=== PATIENT | female | born 1980 | race African-American/Black ===

== ENCOUNTER → 2016-12-26 | Outpatient (CLI) | payer MEDICARE, MEDICAID ==
--- NOTE | 2016-12-27 14:56 | XCELERA REPORT ---
[address] [address] Upper Extremity Venous Evaluation Name: MARIO WOOD Age: 36 yrs Gender: Female : 1980 Patient Status: Outpatient Patient Location: Study Date: 12/26/2016 03:18 PM Procedure: Unilateral duplex scan of the left upper extremity veins was performed, including responses to compression and other maneuvers. Reason For Study: LT ARM PAIN Ordering Physician: GEORGI HERNANDEZ Performed By: Gale Pack Left Sided Venous Evaluation Normal vessel filling wall to wall, compression and augmentation as well as Colour flow down to the forrearm veins. Interpretation Summary Normal compression, patency, spontaneous and phasic flow of the left upper extremity veins. : GEORGI HERNANDEZ > Giuseppe Naidu
== END ==
LOC: SP 14:43
PROVIDERS: ATTEND Pain Medicine Pain Medicine
DX: M79.602 Pain in left arm (principal)
CPT/HCPCS: 93971

== ENCOUNTER 2017-03-09 01:32 | Emergency (ER) | payer MEDICARE, MEDICAID ==
--- NOTE | 2017-03-09 02:26 | ER Document Report ---
ED General - General Chief Complaint: Probable Seizure Stated Complaint: POSSIBLE SEIZURES Time Seen by Provider: 03/09/17 02:06 Notes: Patient is a 36-year-old female with end-stage renal disease with dialysis dependence and a history of pseudoseizures who presents with 1 of her typical seizure-like episodes. Although patient was started in the emergency department on Keppra, she has never had a formal neurology evaluation and review of her prior seizures indicates that virtually all of them occur under stressful situations or during arguments and never have a postictal state. Tonight she had an episode in which again she states she was very stressed and had a 10-15 seconds episode of generalized jerking per her who is at the bedside. He notes that she immediately after she was alert, oriented and answering questions. He notes this is very typical for her seizure-like episodes. At time of my assessment she denies any concerns or complaints. She has been taking all medications as directed. She has not noted that anything seem to trigger her seizures other than stress or anxiety and that they do resolve on their own. TRAVEL OUTSIDE OF THE [place] IN LAST 30 DAYS: No - Related Data Allergies/Adverse Reactions: latex [Latex] Allergy (Intermediate, Verified 03/09/17 02:43) Hives tramadol [Tramadol] Allergy (Intermediate, Verified 03/09/17 02:43) Hives ibuprofen Allergy (Verified 03/09/17 02:43) naproxen sodium [From Aleve] Allergy (Verified 03/09/17 02:43) Hives Past Medical History - General Information source: Patient - Social History Smoking Status: Never Smoker Frequency of alcohol use: None Drug Abuse: None Lives with: Spouse/Significant other Family History: Reviewed & Not Pertinent - Past Medical History Cardiac Medical History: Reports: Hx Hypertension Denies: Hx Coronary Artery Disease, Hx Heart Attack Pulmonary Medical History: Denies: Hx Asthma, Hx Bronchitis, Hx COPD, Hx Pneumonia Neurological Medical History: Reports: Hx Seizures. Denies: Hx Cerebrovascular Accident Renal/ Medical History: Reports: Hx End Stage Renal Disease, Hx Hemodialysis. 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, Reports Hx Musculoskeletal Trauma Skin Medical History: Reports Hx Eczema Past Surgical History: Reports: Hx Section, Hx Orthopedic Surgery - bilateral wrist, Hx Thyroid Surgery - x3, Hx Vascular Surgery - Immunizations Immunizations up to date: Yes Hx Diphtheria, Pertussis, Tetanus Vaccination: Yes Review of Systems - Review of Systems Notes: Constitutional: Negative for fever. HENT: Negative for sore throat. Eyes: Negative for visual changes. Cardiovascular: Negative for chest pain. Respiratory: Negative for shortness of breath. Gastrointestinal: Negative for abdominal pain, vomiting or diarrhea. Genitourinary: Negative for dysuria. Musculoskeletal: Negative for back pain. Skin: Negative for rash. Neurological: Negative for headaches, weakness or numbness. 10 point ROS negative except as marked above and in HPI. Physical Exam - Vital signs Vitals: Temp Pulse Resp BP Pulse Ox 98.1 F 74 16 138/100 H 99 03/09/17 01:41 03/09/17 01:41 03/09/17 01:41 03/09/17 01:41 03/09/17 01:41 Interpretation: Normal Notes: PHYSICAL EXAMINATION: GENERAL: Well-appearing, well-nourished and in no acute distress. HEAD: Atraumatic, normocephalic. EYES: Pupils equal round and reactive to light, extraocular movements intact, sclera anicteric, conjunctiva are normal. ENT: nares patent, oropharynx clear without exudates. Moist mucous membranes. NECK: Normal range of motion, supple without lymphadenopathy LUNGS: Breath sounds clear to auscultation bilaterally and equal. No wheezes rales or rhonchi. HEART: Regular rate and rhythm without murmurs ABDOMEN: Soft, nontender, normoactive bowel sounds. No guarding, no rebound. No masses appreciated. EXTREMITIES: Normal range of motion, no pitting or edema. No cyanosis. NEUROLOGICAL: Face symmetric. Tongue protrudes midline. Extraocular motions intact. Pupils are 2 mm and equally reactive. Normal speech, normal gait. 5 out of 5 strength in both the distal and proximal upper and lower extremities bilaterally. Sensation is grossly intact throughout. Finger to nose testing normal. Pronator drift normal. PSYCH: Normal mood, normal affect. SKIN: Warm, Dry, normal turgor, no rashes or lesions noted. Course - Re-evaluation Re-evalutation: 03/09/17 02:09 Patient presents with symptoms had a history consistent with PNES. Clinical history is inconsistent with an epileptic seizure and I do not believe any imaging or labs as indicated. Neurologic exam unremarkable without any focal neurologic deficits. No trauma sustained during today's episode. The patient does have a history of similar episodes in the past as well as a psychiatric history. I have encouraged prompt follow-up and consideration of keppra discontinuation as her history is not consistent with epileptogenic seizures. At this time will discharge with return precautions and follow-up recommendations. Verbal discharge instructions given a the bedside and opportunity for questions given. Medication warnings reviewed. Patient is in agreement with this plan and has verbalized understanding of return precautions and the need for primary care follow-up in the next 24-72 hours. - Vital Signs Vital signs: Temp Pulse Resp BP Pulse Ox 98.3 F 70 14 128/78 H 99 03/09/17 02:37 03/09/17 02:37 03/09/17 02:37 03/09/17 02:37 03/09/17 02:37 Discharge - Discharge Clinical Impression: Pseudoseizures Condition: Good Disposition: HOME, SELF-CARE Additional Instructions: Today you had a seizure. Her symptoms appear to be most consistent with pseudoseizures as opposed to seizures that are coming from your brain. You should be evaluated by neurology before you continue to take your seizure medicines for the long-term as it appears that your seizures are not likely coming directly from your brain but more due to stressors. Please return to the ED immediately if you have multiple seizures close together, develop a severe headache, weakness, numbness, difficulty speaking, have a seizure in which you do not return to normal within 1 hour of the seizure, or have any other symptoms that are concerning to you. Referrals: LUKAS SEALS MD [ACTIVE STAFF] - Follow up in 3-5 days
[2017-03-09 02:44] VITALS: BP 128/78
== END 2017-03-09 02:40 | disposition home or self-care (01) ==
LOC: ER 01:32
DX: R56.9 Unspecified convulsions (principal); I12.0 Hypertensive chronic kidney disease with stage 5 chronic kidney disease or end stage renal disease; N18.6 End stage renal disease; Z99.2 Dependence on renal dialysis; Z91.040 Latex allergy status; Z88.6 Allergy status to analgesic agent
CPT/HCPCS: 99284

== ENCOUNTER 2017-04-18 16:18 | Emergency (ER) | payer MEDICARE, MEDICAID ==
--- NOTE | 2017-04-18 17:10 | ER Document Report ---
HPI - HPI Patient complains to provider of: neck pain Onset/Duration: Persistent Quality of pain: Sharp Pain Level: 4 Context: pt complains of neck pain for the past 2 weeks. Patient is on medication for chronic back pain and nerve damage to her left upper extremity. Patient also complains of daily fevers for the past month. Patient states that she was told at dialysis that she needs to have these fevers evaluated. hx: Dialysis, chronic back pain - REPRODUCTIVE Reproductive: DENIES: : - DERM Skin Color: Normal Past Medical History - Social History Smoking Status: Unknown if Ever Smoked Family History: Reviewed & Not Pertinent - Past Medical History Cardiac Medical History: Reports: Hx Hypertension Denies: Hx Coronary Artery Disease, Hx Heart Attack Pulmonary Medical History: Denies: Hx Asthma, Hx Bronchitis, Hx COPD, Hx Pneumonia Neurological Medical History: Reports: Hx Seizures. Denies: Hx Cerebrovascular Accident Renal/ Medical History: Reports: Hx End Stage Renal Disease, Hx Hemodialysis. 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, Reports Hx Musculoskeletal Trauma Skin Medical History: Reports Hx Eczema Past Surgical History: Reports: Hx Section, Hx Orthopedic Surgery - bilateral wrist, Hx Thyroid Surgery - x3, Hx Vascular Surgery - Immunizations Immunizations up to date: Yes Hx Diphtheria, Pertussis, Tetanus Vaccination: Yes Vertical Provider Document - CONSTITUTIONAL General Appearance: WD/WN Notes: Patient with very exaggerated pain response with very minimal palpation of the neck - INFECTION CONTROL TRAVEL OUTSIDE OF THE [place] IN LAST 30 DAYS: No - RESPIRATORY O2 Sat by Pulse Oximetry: 98 Course - Vital Signs Vital signs: Temp Pulse Resp BP Pulse Ox 98.7 F 97 22 H 137/84 H 98 04/18/17 16:22 04/18/17 16:22 04/18/17 16:22 04/18/17 16:22 04/18/17 16:22
[2017-04-18 17:41] LABS: ABSOLUTE BASOPHILS # (AUTO) 0.1 10^3/uL (0.0-0.2); ABSOLUTE EOSINOPHILS # (AUTO) 0.3 10^3/uL (0.0-0.6); ABSOLUTE LYMPHOCYTES (AUTO) 1.6 10^3/uL (0.5-4.7); ABSOLUTE MONOCYTES (AUTO) 0.6 10^3/uL (0.1-1.4); ABSOLUTE NEUT (AUTO) 6.3 10^3/uL (1.7-8.2); EOSINOPHILS % (AUTO) 3.3 % (0-6); HEMATOCRIT 36.7 % (36.0-47.0); HEMOGLOBIN 12.1 g/dL (12.0-15.5); HGB HCT DIFFERENCE -0.4; MEAN CORPUSCULAR HEMOGLOBIN 31.9 pg (27.0-33.4); MEAN CORPUSCULAR HGB CONC 33.1 g/dL (32.0-36.0); MEAN CORPUSCULAR VOLUME 96 fl (80-97); MONOCYTES % (AUTO) 6.3 % (3-13); RED BLOOD COUNT 3.81 10^6/uL (3.72-5.28); RED CELL DISTRIBUTION WIDTH 13.6 % (11.5-14.0); SEGMENTED NEUTROPHILS % (AUTO) 71.4 % (42-78); WHITE BLOOD COUNT 8.9 10^3/uL (4.0-10.5)
[2017-04-18 17:55] LABS: ALANINE AMINOTRANSFERASE 17 U/L (9-52); ALBUMIN 4.4 g/dL (3.5-5.0); ALKALINE PHOSPHATASE 90 U/L (38-126); ANION GAP 16 (5-19); ASPARTATE AMINO TRANSFERASE 21 U/L (14-36); BILIRUBIN,DIRECT 0.6 mg/dL (0.0-0.4); BILIRUBIN,TOTAL 0.6 mg/dL (0.2-1.3); BLOOD UREA NITROGEN 44 mg/dL (7-20); CALCIUM 9.2 mg/dL (8.4-10.2); CARBON DIOXIDE 24 mmol/L (22-30); CHLORIDE 99 mmol/L (98-107); CREATININE RESULT 13.72 mg/dL (0.52-1.25); GLUCOSE 93 mg/dL (75-110); POTASSIUM 4.5 mmol/L (3.6-5.0); TOTAL PROTEIN 7.6 g/dL (6.3-8.2)
--- NOTE | 2017-04-18 18:27 | ER Document Report ---
ED Neck/Back Problem - General Mode of Arrival: Ambulatory Information source: Patient TRAVEL OUTSIDE OF THE [place] IN LAST 30 DAYS: No - HPI Patient complains to provider of: Neck Onset: Other - x2 weeks <HERACLIO OTOOLE - Last Filed: 04/18/17 23:39> <BARB ANDERSON - Last Filed: 04/18/17 23:49> - General Chief Complaint: Neck Pain >24hrs old Stated Complaint: NECK PAIN Time Seen by Provider: 04/18/17 16:50 Notes: Patient is a 37-year-old female who presents to the emergency department today with complaints of neck pain. Patient is holding her neck cocked to the left, stating that if she moves it to the right it causes pain. Patient states she has had neck pain for approximately 2 weeks. Patient does report being on pain management, stating she takes Percocet 7.5 daily and "this is not helping her pain". Patient also states she has had "random fevers" every few dialysis treatments and they have done blood cultures which have "not shown anything". Patient also mentions that she is curious to know if she is or not. Patient denies any fevers today. (HERACLIO OTOOLE) - Related Data Allergies/Adverse Reactions: latex [Latex] Allergy (Intermediate, Verified 03/09/17 02:43) Hives tramadol [Tramadol] Allergy (Intermediate, Verified 03/09/17 02:43) Hives ibuprofen Allergy (Verified 03/09/17 02:43) naproxen sodium [From Aleve] Allergy (Verified 03/09/17 02:43) Hives Past Medical History - General Information source: Patient - Social History Smoking Status: Unknown if Ever Smoked Cigarette use (# per day): No Frequency of alcohol use: None Drug Abuse: None Lives with: Family Family History: Reviewed & Not Pertinent - Past Medical History Cardiac Medical History: Reports: Hx Hypertension Neurological Medical History: Reports: Hx Seizures Renal/ Medical History: Reports: Hx End Stage Renal Disease, Hx Hemodialysis Musculoskeltal Medical History: Reports Hx Musculoskeletal Deformity - Nerve damage to left hand, Reports Hx Musculoskeletal Trauma Skin Medical History: Reports Hx Eczema Past Surgical History: Reports: Hx Section, Hx Orthopedic Surgery - bilateral wrist, Hx Thyroid Surgery - x3, Hx Vascular Surgery - Immunizations Immunizations up to date: Yes Hx Diphtheria, Pertussis, Tetanus Vaccination: Yes <SYDNIEHERACLIO - Last Filed: 04/18/17 23:39> Review of Systems - Review of Systems Constitutional: No symptoms reported EENT: No symptoms reported Cardiovascular: No symptoms reported Respiratory: No symptoms reported Gastrointestinal: No symptoms reported Genitourinary: No symptoms reported Female Genitourinary: See HPI, - ? Musculoskeletal: See HPI, Neck pain Skin: No symptoms reported Hematologic/Lymphatic: No symptoms reported Neurological/Psychological: No symptoms reported -: Yes All other systems reviewed and negative <HERACLIO OTOOLE - Last Filed: 04/18/17 23:39> Physical Exam <HERACLIO OTOOLE - Last Filed: 04/18/17 23:39> <BARB ANDERSON - Last Filed: 04/18/17 23:49> - Vital signs Vitals: Temp Pulse Resp BP Pulse Ox 98.7 F 97 22 H 137/84 H 98 04/18/17 16:22 04/18/17 16:22 04/18/17 16:22 04/18/17 16:22 04/18/17 16:22 - Notes Notes: Physical Exam: General: Alert, appears well. HEENT: Normocephalic. Atraumatic. PERRL. Extraocular movements intact. Oropharynx clear. Neck: Supple. Left paraspinal neck tenderness with palpation, left trapezius and left medial scapula tenderness with palpation. Respiratory: No respiratory distress. Clear and equal breath sounds bilaterally. Cardiovascular: Regular rate and rhythm. Abdominal: Normal Inspection. Non-tender. No distension. Normal Bowel Sounds. Back: Non-tender. No deformity or step off. Extremities: Moves all four extremities. Upper extremities: Normal inspection. Normal ROM. Lower extremities: Normal inspection. No edema. Normal ROM. Neurological: Normal cognition. AAOx4. Normal speech. Psychological: Normal affect. Normal Mood. Skin: Warm. Dry. Normal color. (HERACLIO OTOOLE) Course - Laboratory Result Diagrams: 04/18/17 17:20 04/18/17 17:20 <HERACLIO OTOOLE - Last Filed: 04/18/17 23:39> - Laboratory Result Diagrams: 04/18/17 17:20 04/18/17 17:20 <BARB ANDERSON - Last Filed: 04/18/17 23:49> - Re-evaluation Re-evalutation: 04/18/17 Patient is neurovascularly intact. No midline tenderness. Patient will be given a referral for outpatient MRI. She will be given Soma for pain. She is to follow-up with her doctor. Stable for discharge. Return if any worsening or concerning symptoms. (BARB ANDERSON) - Vital Signs Vital signs: Temp Pulse Resp BP Pulse Ox 98.8 F 64 16 132/80 H 99 04/18/17 19:13 04/18/17 19:13 04/18/17 19:13 04/18/17 19:13 04/18/17 19:13 - Laboratory Laboratory results interpreted by me: 04/18/17 17:20 BUN 44 H Creatinine 13.72 H Est GFR ( Amer) 4 L Est GFR (Non-Af Amer) 3 L Direct Bilirubin 0.6 H Discharge <HERACLIO OTOOLE - Last Filed: 04/18/17 23:39> <BARB ANDERSON - Last Filed: 04/18/17 23:49> - Discharge Clinical Impression: Neck muscle spasm Condition: Stable Disposition: HOME, SELF-CARE Instructions: Neck Injury (Cervical Strain) ([facility]) Prescriptions: Carisoprodol [Soma 350 Mg Tablet] 350 mg PO DAILY #30 tablet Forms: Follow-Up Radiology Testing Referrals: MELL TODD MD [Primary Care Provider] - Follow up as needed Scribe Attestation: 04/18/17 23:49 I personally performed the services described in the documentation, reviewed and edited the documentation which was dictated to the scribe in my presence, and it accurately records my words and actions. (BARB ANDERSON) Scribe Documentation - Scribe Written by Ashlyn:: Ashlyn Kramer, [id number] acting as scribe for :: Jefferson <HERACLIO OTOOLE - Last Filed: 04/18/17 23:39>
[2017-04-18] MEDS ORDERED: CARISOPRODOL 350 MG TABLET PO ONE (18:30)
[2017-04-18 19:19] VITALS: BP 132/80
== END 2017-04-18 19:23 | disposition home or self-care (01) ==
LOC: ER 16:18
DX: M62.838 Other muscle spasm (principal); M54.2 Cervicalgia; I12.0 Hypertensive chronic kidney disease with stage 5 chronic kidney disease or end stage renal disease; N18.6 End stage renal disease; Z99.2 Dependence on renal dialysis; Z91.040 Latex allergy status; Z88.6 Allergy status to analgesic agent
CPT/HCPCS: 99283; 36415; 87040; 87070; 87880; 84703; 85025; 86308; 80053; A9270; J3490

== ENCOUNTER 2017-05-06 09:26 | Emergency (ER) | payer MEDICARE, MEDICAID ==
[2017-05-06 09:32] VITALS: BP 123/70
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
== END 2017-05-06 10:35 | disposition home or self-care (01) ==
LOC: ER 09:26
DX: S61.211A Laceration without foreign body of left index finger without damage to nail, initial encounter (principal); W26.0XXA Contact with knife, initial encounter
CPT/HCPCS: 99282

== ENCOUNTER 2017-05-17 17:00 | Emergency (ER) | payer MEDICARE, MEDICAID ==
--- NOTE | 2017-05-17 17:17 | ER Document Report ---
ED Medical Screen (RME) - General Stated Complaint: ABDOMINAL PAIN Time Seen by Provider: 05/17/17 17:10 Notes: This 37-year-old female patient comes emergency room complaining of generalized abdominal pain for a week, and nausea vomiting for the past couple days. She dialyzes Monday, did not go to dialysis today. She states that she recently had dietary changes and that she thought me it was causing problems so she states the dialysis people had her stop eating meat and put her on special protein bars and shakes. She states she stopped that a few days ago but has not gotten any better. She also states "my stomach is growling for food " at this time. The patient states she does not make urine. I have greeted and performed a rapid initial assessment of this patient. A comprehensive ED assessment and evaluation of the patient, analysis of test results and completion of the medical decision making process will be conducted by additional ED providers. TRAVEL OUTSIDE OF THE [place] IN LAST 30 DAYS: No - Related Data Allergies/Adverse Reactions: latex [Latex] Allergy (Intermediate, Verified 05/17/17 17:04) Hives tramadol [Tramadol] Allergy (Intermediate, Verified 05/17/17 17:04) Hives ibuprofen Allergy (Verified 05/17/17 17:04) naproxen sodium [From Aleve] Allergy (Verified 05/17/17 17:04) Hives Past Medical History - Past Medical History Cardiac Medical History: Reports: Hx Hypertension Denies: Hx Coronary Artery Disease, Hx Heart Attack Pulmonary Medical History: Denies: Hx Asthma, Hx Bronchitis, Hx COPD, Hx Pneumonia Neurological Medical History: Reports: Hx Seizures. Denies: Hx Cerebrovascular Accident Renal/ Medical History: Reports: Hx End Stage Renal Disease, Hx Hemodialysis. 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, Reports Hx Musculoskeletal Trauma Skin Medical History: Reports Hx Eczema Past Surgical History: Reports: Hx Section, Hx Orthopedic Surgery - bilateral wrist, Hx Thyroid Surgery - x3, Hx Vascular Surgery - Immunizations Immunizations up to date: Yes Hx Diphtheria, Pertussis, Tetanus Vaccination: Yes Physical Exam - Vital signs Vitals: Temp Pulse Resp BP Pulse Ox 99.1 F 82 20 142/94 H 99 05/17/17 17:07 05/17/17 17:07 05/17/17 17:07 05/17/17 17:07 05/17/17 17:07 Course - Vital Signs Vital signs: Temp Pulse Resp BP Pulse Ox 99.1 F 82 20 142/94 H 99 05/17/17 17:07 05/17/17 17:07 05/17/17 17:07 05/17/17 17:07 05/17/17 17:07
[2017-05-17 17:39] LABS: ABSOLUTE BASOPHILS # (AUTO) 0.1 10^3/uL (0.0-0.2); ABSOLUTE EOSINOPHILS # (AUTO) 0.2 10^3/uL (0.0-0.6); ABSOLUTE LYMPHOCYTES (AUTO) 1.5 10^3/uL (0.5-4.7); ABSOLUTE MONOCYTES (AUTO) 0.5 10^3/uL (0.1-1.4); ABSOLUTE NEUT (AUTO) 6.3 10^3/uL (1.7-8.2); BASOPHILS % (AUTO) 1.3 % (0-2); EOSINOPHILS % (AUTO) 2.3 % (0-6); HEMOGLOBIN 12.2 g/dL (12.0-15.5); HGB HCT DIFFERENCE 0.6; LYMPHOCYTES % (AUTO) 17.6 % (13-45); MEAN CORPUSCULAR HEMOGLOBIN 33.2 pg (27.0-33.4); MEAN CORPUSCULAR VOLUME 98 fl (80-97); MONOCYTES % (AUTO) 5.8 % (3-13); RED BLOOD COUNT 3.68 10^6/uL (3.72-5.28); RED CELL DISTRIBUTION WIDTH 14.3 % (11.5-14.0); WHITE BLOOD COUNT 8.6 10^3/uL (4.0-10.5)
[2017-05-17 17:57] LABS: ALANINE AMINOTRANSFERASE 16 U/L (9-52); ALBUMIN 4.2 g/dL (3.5-5.0); ALKALINE PHOSPHATASE 78 U/L (38-126); ANION GAP 16 (5-19); ASPARTATE AMINO TRANSFERASE 15 U/L (14-36); BILIRUBIN,DIRECT 0.6 mg/dL (0.0-0.4); BILIRUBIN,TOTAL 0.6 mg/dL (0.2-1.3); BLOOD UREA NITROGEN 47 mg/dL (7-20); CALCIUM 9.6 mg/dL (8.4-10.2); CARBON DIOXIDE 28 mmol/L (22-30); CHLORIDE 98 mmol/L (98-107); GLUCOSE 79 mg/dL (75-110); POTASSIUM 4.7 mmol/L (3.6-5.0); SODIUM 141.9 mmol/L (137-145); TOTAL PROTEIN 6.9 g/dL (6.3-8.2)
[2017-05-17] MEDS ORDERED: ONDANSETRON HCL INJ/PF 4 MG/2 ML SDV IV ONE (18:29)
[2017-05-17] MEDS ORDERED: ONDANSETRON 4 MG TAB.RAPDIS PO ONE (18:34)
--- NOTE | 2017-05-17 18:37 | ER Document Report ---
ED General - General Chief Complaint: Abdominal Pain Stated Complaint: ABDOMINAL PAIN Time Seen by Provider: 05/17/17 17:10 Notes: 7-year-old female presents complaining of nausea for 2 days with diarrhea and abdominal cramping with decreased oral intake. Constant. Not worsening or getting any better. No ill contacts no fever. Patient is on dialysis goes Monday and missed today but does not have any headache chest pain or shortness of breath beyond her normal and no worsening edema. No foreign travel or recent antibiotics. She cannot localize the abdominal discomfort at this time. TRAVEL OUTSIDE OF THE [place] IN LAST 30 DAYS: No - Related Data Allergies/Adverse Reactions: latex [Latex] Allergy (Intermediate, Verified 05/17/17 17:04) Hives tramadol [Tramadol] Allergy (Intermediate, Verified 05/17/17 17:04) Hives ibuprofen Allergy (Verified 05/17/17 17:04) naproxen sodium [From Aleve] Allergy (Verified 05/17/17 17:04) Hives Past Medical History - General Information source: Patient - Social History Smoking Status: Never Smoker Family History: Reviewed & Not Pertinent Patient has suicidal ideation: No Patient has homicidal ideation: No - Past Medical History Cardiac Medical History: Reports: Hx Hypertension Denies: Hx Coronary Artery Disease, Hx Heart Attack Pulmonary Medical History: Denies: Hx Asthma, Hx Bronchitis, Hx COPD, Hx Pneumonia Neurological Medical History: Reports: Hx Seizures. Denies: Hx Cerebrovascular Accident Renal/ Medical History: Reports: Hx End Stage Renal Disease, Hx Hemodialysis. 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, Reports Hx Musculoskeletal Trauma Skin Medical History: Reports Hx Eczema Past Surgical History: Reports: Hx Section, Hx Orthopedic Surgery - bilateral wrist, Hx Thyroid Surgery - x3, Hx Vascular Surgery - Immunizations Immunizations up to date: Yes Hx Diphtheria, Pertussis, Tetanus Vaccination: Yes Review of Systems - Review of Systems Notes: REVIEW OF SYSTEMS GEN: Denies fever, chills, weight loss ENT: Denies sore throat, nasal discharge, ear pain EYES: Denies blurry vision, eye pain, discharge CV: Denies chest pain, palpitations, edema RESP: Denies cough, shortness of breath, wheezing GI: D nausea vomiting diarrhea MSK: Denies joint pain/swelling, edema, SKIN: Denies rash, skin lesions LYMPH: Denies swollen glands/lymph nodes NEURO: Denies headache, focal weakness or numbness, dizziness PSYCH: Denies depression, suicidal or homicidal ideation PHYSICAL EXAMINATION General: No acute distress, well-nourished Head: Atraumatic, normocephalic ENT: Mouth normal, oropharynx moist, no exudates or tonsillar enlargement Eyes: Conjunctiva normal, pupils equal, lids normal Neck: No JVD, supple, no guarding CVS: Normal rate, regular rhythm, no murmurs Resp: No resp distress, equal and normal breath sounds bilaterally GI: Nondistended, soft, no tenderness to palpation, no rebound or guarding Ext: No deformities, no edema, normal range of motion in upper and lower ext Back: No CVA or midline TTP Skin: No rash, warm Lymphatic: No lymphadeopathy noted Neuro: Awake, alert. Face symmetric. GCS 15. Physical Exam - Vital signs Vitals: Temp Pulse Resp BP Pulse Ox 99.1 F 82 20 142/94 H 99 05/17/17 17:07 05/17/17 17:07 05/17/17 17:07 05/17/17 17:07 05/17/17 17:07 Course - Re-evaluation Re-evalutation: 05/17/17 18:37 This is a very well-appearing 37-year-old dialysis patient with nausea vomiting and abdominal discomfort with diarrhea. Her vital signs are normal she appears quite well with a very benign abdominal exam and a normal set of labs considering that she missed dialysis today. She has no indications for acute dialysis, and based on her labs and exam I do not think she has any indication for acute imaging in the ED. This is likely a foodborne or viral gastroneuritis type illness. 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 05/17/17 19:20 05/17/17 19:20 I have discussed with the patient there likely diagnosis, aftercare plan, follow -up plans and my usual and customary return precautions. They verbalized understanding of this. - Vital Signs Vital signs: Temp Pulse Resp BP Pulse Ox 99.1 F 82 20 142/94 H 99 05/17/17 17:07 05/17/17 17:07 05/17/17 17:07 05/17/17 17:07 05/17/17 17:07 - Laboratory Result Diagrams: 05/17/17 17:23 05/17/17 17:23 Laboratory results interpreted by me: 05/17/17 05/17/17 17:23 17:23 RBC 3.68 L MCV 98 H RDW 14.3 H BUN 47 H Creatinine 15.80 H Est GFR ( Amer) 3 L Est GFR (Non-Af Amer) 3 L Direct Bilirubin 0.6 H Discharge - Discharge Clinical Impression: Nausea vomiting and diarrhea Condition: Good Disposition: HOME, SELF-CARE Instructions: Abdominal Pain ([facility]), Diarrhea, Nonspecific ([facility]) Additional Instructions: Who missed dialysis I would like you to call your kidney doctors in [place] tonight or tomorrow morning and arrange for a makeup session. Prescriptions: Ondansetron [Zofran Odt 4 mg Tablet] 1 - 2 tab PO Q4H PRN #15 tab.rapdis PRN Reason: For Nausea/Vomiting
[2017-05-17 20:01] VITALS: BP 139/81
== END 2017-05-17 19:45 | disposition home or self-care (01) ==
LOC: ER 17:00
DX: R11.2 Nausea with vomiting, unspecified (principal); R19.7 Diarrhea, unspecified; R10.9 Unspecified abdominal pain; I12.0 Hypertensive chronic kidney disease with stage 5 chronic kidney disease or end stage renal disease; N18.6 End stage renal disease; Z99.2 Dependence on renal dialysis; Z91.15 Patient's noncompliance with renal dialysis; Z91.040 Latex allergy status; Z88.5 Allergy status to narcotic agent; Z88.6 Allergy status to analgesic agent
CPT/HCPCS: 99284; 36415; 85025; 80053; A9270; S0119

== ENCOUNTER 2017-06-10 01:55 | Emergency (ER) | payer MEDICARE, MEDICAID ==
--- NOTE | 2017-06-10 02:54 | ER Document Report ---
ED General - General Chief Complaint: Nausea/Vomiting/Diarrhea Stated Complaint: DIARRHEA Time Seen by Provider: 06/10/17 02:34 TRAVEL OUTSIDE OF THE [place] IN LAST 30 DAYS: No - HPI Notes: Patient is a 37-year-old female with a history of chronic kidney disease and on dialysis who presents the ED complaining of lower abdominal/pelvic pain that has been intermittent, nausea/vomiting, diarrhea, decreased appetite 4 weeks. Patient states that she was evaluated about 3 weeks ago and was diagnosed with gastroenteritis. Patient states that her symptoms have not improved since then. She has been taking Zofran which does help on occasion with her nausea. Patient states that she has still been participating with her dialysis sessions every Monday, Monday, and Fridays without any difficulties. Patient is able to tolerate p.o. intake. Patient states that she has anuria which is normal for her over the last several years. Patient has not noticed any hematemesis, melena, hematochezia. The pain is described as a cramp and occasional sharp pain. Patient states that she does have a history of ovarian cysts as well. Denies any headache, fever, neck pain/stiffness, URI, sore throat, chest pain, palpitations, syncope, cough, shortness of breath, wheeze, dyspnea, or rash. Patient denies any smoking or illicit drug use. - Related Data Allergies/Adverse Reactions: latex [Latex] Allergy (Intermediate, Verified 06/10/17 02:03) Hives tramadol [Tramadol] Allergy (Intermediate, Verified 06/10/17 02:03) Hives ibuprofen Allergy (Verified 06/10/17 02:03) naproxen sodium [From Aleve] Allergy (Verified 06/10/17 02:03) Hives Past Medical History - Social History Smoking Status: Never Smoker Family History: Reviewed & Not Pertinent Patient has suicidal ideation: No Patient has homicidal ideation: No - Past Medical History Cardiac Medical History: Reports: Hx Hypertension Denies: Hx Coronary Artery Disease, Hx Heart Attack Pulmonary Medical History: Denies: Hx Asthma, Hx Bronchitis, Hx COPD, Hx Pneumonia Neurological Medical History: Reports: Hx Seizures. Denies: Hx Cerebrovascular Accident Renal/ Medical History: Reports: Hx End Stage Renal Disease, Hx Hemodialysis. 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 Denies recent illness. EENT: Denies eye, ear, throat, or mouth pain or symptoms. Denies nasal or sinus congestion or discharge. Denies throat, tongue, or mouth swelling or difficulty swallowing. CARDIOVASCULAR: Denies chest pain. Denies palpitations or racing or irregular heart beat. Denies ankle edema. RESPIRATORY: Denies cough, cold, or chest congestion. Denies shortness of breath, difficulty breathing, or wheezing. GASTROINTESTINAL: see hpi GENITOURINARY: see hpi. Denies difficulty urinating, painful urination, burning, frequency, blood in urine, or discharge. FEMALE GENITOURINARY: Denies vaginal bleeding, heavy or abnormal periods, irregular periods. Denies vaginal discharge or odor. MUSCULOSKELETAL: Denies back or neck pain or stiffness. Denies joint pain or swelling. SKIN: Denies rash, lesions or sores. NEUROLOGICAL: Denies confusion or altered mental status. Denies passing out or loss of consciousness. Denies dizziness or lightheadedness. Denies headache. Denies weakness or paralysis or loss of use of either side. Denies problems with gait or speech. Denies sensory loss, numbness, or tingling. ALL OTHER SYSTEMS REVIEWED AND NEGATIVE. Dictation was performed using [employer] voice recognition software Physical Exam - Vital signs Vitals: Temp Pulse Resp BP Pulse Ox 98.6 F 72 20 154/101 H 97 06/10/17 02:03 06/10/17 02:03 06/10/17 02:03 06/10/17 02:03 06/10/17 02:03 Notes: PHYSICAL EXAMINATION: GENERAL: Well-appearing, well-nourished and in no acute distress. HEAD: Atraumatic, normocephalic. EYES: Pupils equal round and reactive to light, extraocular movements intact, conjunctiva are normal. ENT: TMs intact bilaterally without erythema fluid or perforation. No tonsillar hypertrophy or erythema. No sinus tenderness. NECK: Normal range of motion, supple without lymphadenopathy. No rigidity. LUNGS: Breath sounds clear to auscultation bilaterally and equal. No wheezes rales or rhonchi. HEART: Regular rate and rhythm without murmurs ABDOMEN: Soft, nontender, nondistended abdomen. No guarding, no rebound. No masses appreciated. Normal bowel sounds present. CVA tenderness negative bilaterally. No pulsatile mass. Female : No inguinal adenopathy. External genitalia without erythema, lesions , or masses. Vaginal mucosa pink. Cervix parous, pink, and without discharge. Uterus is smooth. No adnexal tenderness. Musculoskeletal: LE's b/l: FROM to passive/active. Strength 5+/5. Extremities: No cyanosis/clubbing/edema b/l. Peripheral pulses 2+. Capillary refill less than 3 seconds. NEUROLOGICAL: Normal speech, normal gait. Normal sensory, motor exams PSYCH: Normal mood, normal affect. SKIN: Warm, Dry, normal turgor, no rashes or lesions noted. Course - Re-evaluation Re-evalutation: 06/10/17 04:55 Patient is an afebrile, well-hydrated, 37-year-old female who presents the ED with bilateral pelvic pain, uterine fibroid, right ovarian cyst. Vitals are stable. PE otherwise unremarkable. Zofran 4 mg given IV. CBC, CMP, wet mount , were unremarkable for acute pathology. I have a low suspicion for any chlam/ kavita so we will hold off on the prophylactic at this time. Risks/benefits reviewed. Pt will call in the morning for her results and report back if need be or go to the health department. Patient has known chronic kidney disease and is on dialysis. Serum negative. See transvaginal ultrasound results. Low suspicion/risk for acute appendicitis, bowel obstruction, acute cholecystitis, acute cholangitis, perforated diverticulitis, incarcerated hernia , pancreatitis, perforated ulcer, peritonitis, sepsis, pelvic inflammatory disease, ectopic , tubo-ovarian abscess, ovarian torsion, or other systemic emergent condition at this time. Patient is aware that her condition can change from initial presentation and she needs to monitor symptoms closely and seek medical attention if any acute changes. Conservative measures otherwise for symptoms. Recheck with OBGYN in 1-2 days. Recheck with your PCM in 2-3 days. 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 Return to the ED with any worsening/concerning symptoms otherwise as reviewed in discharge. Patient is in agreement. - Vital Signs Vital signs: Temp Pulse Resp BP Pulse Ox 98.6 F 72 20 154/101 H 97 06/10/17 02:03 06/10/17 02:03 06/10/17 02:03 06/10/17 02:03 06/10/17 02:03 - Laboratory Result Diagrams: 06/10/17 03:07 06/10/17 03:07 Laboratory results interpreted by me: 06/10/17 06/10/17 03:07 03:07 RBC 3.34 L Hgb 11.1 L Hct 33.0 L MCV 99 H BUN 30 H Creatinine 13.35 H Est GFR ( Amer) 4 L Est GFR (Non-Af Amer) 3 L Direct Bilirubin 0.5 H AST 12 L Total Protein 5.9 L Procedures - Pelvic Exam Pelvic exam Time completed: 04:20 Cultures obtained: Yes Wet prep obtained: Yes Bimanual exam performed: Yes - neg Witnessed by: Nurse Gonsales Discharge - Discharge Clinical Impression: Pelvic pain Ovarian cyst Qualifiers: Laterality: unspecified laterality Qualified Code(s): N83.209 - Unspecified ovarian cyst, unspecified side Uterine fibroid Qualifiers: Uterine leiomyoma location: unspecified location Qualified Code(s): D25.9 - Leiomyoma of uterus, unspecified Nausea & vomiting Qualifiers: Vomiting type: unspecified Vomiting Intractability: non-intractable Qualified Code(s): R11.2 - Nausea with vomiting, unspecified Condition: Stable Disposition: HOME, SELF-CARE Instructions: Antinausea Medication ([facility]), Vomiting ([facility]), Diarrhea, Nonspecific ([facility]), Prescribed Antidiarrhea Medications ([facility]), Abdominal Pain ( [facility]), Observation for Appendicitis ([facility]) Additional Instructions: Maintain adequate fluid and food intake Continue dialysis sessions as scheduled Take loperamide as needed for diarrhea Zofran as needed for nausea/vomiting Monitor symptoms closely for any acute changes Recheck with your PCM next week Recheck with your CHEESE TESTER next week Consider consult with gastroenterology Return to the ED with any worsening symptoms and/or development of fever, headache, chest pain, palpitations, syncope, shortness of breath, trouble breathing, abdominal pain, n/v/d, blood in stool/urine, vaginal bleeding/ discharge, or other worsening symptoms that are concerning to you. Prescriptions: Loperamide HCl [Loperamide] 2 mg PO QID PRN #20 tablet PRN Reason: Forms: Elevated Blood Pressure Referrals: MELL TODD MD [Primary Care Provider] - 06/12/17 [facility] [Provider Group] - Follow up in 3-5 days BERNARDA SHAIKH MD [ACTIVE STAFF] - Follow up as needed
[2017-06-10 03:28] LABS: ALANINE AMINOTRANSFERASE 15 U/L (9-52); ALBUMIN 3.6 g/dL (3.5-5.0); ALKALINE PHOSPHATASE 60 U/L (38-126); ANION GAP 13 (5-19); ASPARTATE AMINO TRANSFERASE 12 U/L (14-36); BILIRUBIN,DIRECT 0.5 mg/dL (0.0-0.4); BILIRUBIN,TOTAL 0.5 mg/dL (0.2-1.3); BLOOD UREA NITROGEN 30 mg/dL (7-20); CALCIUM 9.5 mg/dL (8.4-10.2); CARBON DIOXIDE 25 mmol/L (22-30); CHLORIDE 101 mmol/L (98-107); CREATININE RESULT 13.35 mg/dL (0.52-1.25); GLUCOSE 80 mg/dL (75-110); LIPASE 236.2 U/L (23-300); POTASSIUM 3.9 mmol/L (3.6-5.0); SODIUM 138.9 mmol/L (137-145); TOTAL PROTEIN 5.9 g/dL (6.3-8.2)
[2017-06-10 03:31] LABS: ABSOLUTE EOSINOPHILS # (AUTO) 0.3 10^3/uL (0.0-0.6); ABSOLUTE LYMPHOCYTES (AUTO) 1.6 10^3/uL (0.5-4.7); ABSOLUTE MONOCYTES (AUTO) 0.4 10^3/uL (0.1-1.4); ABSOLUTE NEUT (AUTO) 3.5 10^3/uL (1.7-8.2); BASOPHILS % (AUTO) 0.7 % (0-2); EOSINOPHILS % (AUTO) 5.2 % (0-6); HEMOGLOBIN 11.1 g/dL (12.0-15.5); HGB HCT DIFFERENCE 0.3; LYMPHOCYTES % (AUTO) 27.7 % (13-45); MEAN CORPUSCULAR HEMOGLOBIN 33.2 pg (27.0-33.4); MEAN CORPUSCULAR HGB CONC 33.5 g/dL (32.0-36.0); MEAN CORPUSCULAR VOLUME 99 fl (80-97); MONOCYTES % (AUTO) 7.1 % (3-13); RED BLOOD COUNT 3.34 10^6/uL (3.72-5.28); RED CELL DISTRIBUTION WIDTH 13.2 % (11.5-14.0); SEGMENTED NEUTROPHILS % (AUTO) 59.3 % (42-78); WHITE BLOOD COUNT 5.9 10^3/uL (4.0-10.5)
--- NOTE | 2017-06-10 03:57 | RADIOLOGY REPORT (SQ) ---
EXAM DESCRIPTION: U/S NON OB PEL TV W/DOPPLER COMPLETED DATE/TIME: 06/10/2017 3:44 am REASON FOR STUDY: lower abd/pelvic pain, h/o cysts COMPARISON: None. TECHNIQUE: Grayscale images acquired of the pelvis via transvaginal approach and recorded on PACS. A dditional selected color Doppler and spectral images recorded. LIMITATIONS: None. FINDINGS: UTERUS: The uterus measures 9.7 x 5.2 x 5.4 cm. There is a hypoechoic area at the myometr ium measuring 2.4 x 1.5 x 2.7 cm, suggestive of a fibroid. ENDOMETRIAL STRIPE: The endometrial stripe measures 3.3 mm in double wall thickness. CERVIX: The cervix measures 2.5 cm in length and it is closed. Nabothian cysts are noted. RIGHT OVARY: The right ovary measures 4.9 x 3.9 x 4.2 cm. Flow by Doppler was shown to the right ova ry. There is a 3.6 x 4.0 x 4.1 cm cyst. LEFT OVARY: The left ovary measures 2.5 x 1.8 x 2.2 cm. Flow by Doppler was shown to the left ovary. FREE FLUID: None noted. IMPRESSION: Small uterine fibroid. 4.1 cm right ovarian cyst. This can be followup with pelvic ultrasound in 6-12 weeks to ensure resol ution. TECHNICAL DOCUMENTATION: JOB ID: [id number] 2010 [employer]- All Rights Reserved
[2017-06-10] MEDS ORDERED: ONDANSETRON 4 MG TAB.RAPDIS PO ONE (04:35)
[2017-06-10 05:17] VITALS: BP 129/54
[2017-06-10 06:01] LABS: CHLAM PCR NOT DETECTED (NOT DETECT)
== END 2017-06-10 05:16 | disposition home or self-care (01) ==
LOC: ER 01:55
DX: R10.2 Pelvic and perineal pain (principal); N83.209 Unspecified ovarian cyst, unspecified side; D25.9 Leiomyoma of uterus, unspecified; R11.2 Nausea with vomiting, unspecified; R19.7 Diarrhea, unspecified; N18.9 Chronic kidney disease, unspecified; Z99.2 Dependence on renal dialysis; Z79.899 Other long term (current) drug therapy
CPT/HCPCS: 36415; 76830; 80053; 83690; 84703; 85025; 87210; 87491; 87591; 93976; 99284

== ENCOUNTER 2017-06-30 10:36 | Emergency (ER) | payer MEDICARE, MEDICAID ==
[2017-06-30] MEDS ORDERED: DIPHENHYDRAMINE HCL 25 MG CAPSULE PO ONE (10:48)
[2017-06-30] MEDS ORDERED: FAMOTIDINE 20 MG TABLET PO ONE (10:48)
--- NOTE | 2017-06-30 10:50 | ER Document Report ---
ED Medical Screen (RME) - General Chief Complaint: Swelling Stated Complaint: FACIAL SWELLING Time Seen by Provider: 06/30/17 10:44 Notes: 37-year-old female patient reports waking up this morning with swelling to her face, eyes, and throat. There was no itching. She states her throat feels a little sore. She did go to dialysis today and completed treatment prior to coming to the emergency room. She has not taken anything for the swelling. The patient and her relative report that the swelling is much better now than it was earlier. At this time there is only noted some edema to the upper eyelids. Posterior pharynx is clear and there is no edema at all noted. I have greeted and performed a rapid initial assessment of this patient. A comprehensive ED assessment and evaluation of the patient, analysis of test results and completion of the medical decision making process will be conducted by additional ED providers. Late history is that the patient actually did receive Benadryl at dialysis which is probably why she is better. She also reports she is about 8 weeks and has been vaginal bleeding for 5 days. She has been evaluated at the health department and reports that a heartbeat was heard using a Doppler. The patient is O+ based on prior lab work at this facility. TRAVEL OUTSIDE OF THE [place] IN LAST 30 DAYS: No - Related Data Allergies/Adverse Reactions: latex [Latex] Allergy (Intermediate, Verified 06/30/17 10:41) Hives tramadol [Tramadol] Allergy (Intermediate, Verified 06/30/17 10:41) Hives ibuprofen Allergy (Verified 06/30/17 10:41) naproxen sodium [From Aleve] Allergy (Verified 06/30/17 10:41) Hives Past Medical History - Past Medical History Cardiac Medical History: Reports: Hx Hypertension Denies: Hx Coronary Artery Disease, Hx Heart Attack Pulmonary Medical History: Denies: Hx Asthma, Hx Bronchitis, Hx COPD, Hx Pneumonia Neurological Medical History: Reports: Hx Seizures. Denies: Hx Cerebrovascular Accident Renal/ Medical History: Reports: Hx End Stage Renal Disease, Hx Hemodialysis. 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, Reports Hx Musculoskeletal Trauma Skin Medical History: Reports Hx Eczema Past Surgical History: Reports: Hx Section, Hx Orthopedic Surgery - bilateral wrist, Hx Thyroid Surgery - x3, Hx Vascular Surgery - Immunizations Immunizations up to date: Yes Hx Diphtheria, Pertussis, Tetanus Vaccination: Yes Physical Exam - Vital signs Vitals: Temp Pulse Resp BP Pulse Ox 98.5 F 75 20 149/91 H 98 06/30/17 10:37 06/30/17 10:37 06/30/17 10:37 06/30/17 10:37 06/30/17 10:37 Course - Vital Signs Vital signs: Temp Pulse Resp BP Pulse Ox 98.5 F 75 20 149/91 H 98 06/30/17 10:37 06/30/17 10:37 06/30/17 10:37 06/30/17 10:37 06/30/17 10:37
[2017-06-30 11:31] LABS: ABSOLUTE BASOPHILS # (AUTO) 0.1 10^3/uL (0.0-0.2); ABSOLUTE EOSINOPHILS # (AUTO) 0.4 10^3/uL (0.0-0.6); ABSOLUTE LYMPHOCYTES (AUTO) 1.1 10^3/uL (0.5-4.7); ABSOLUTE MONOCYTES (AUTO) 0.5 10^3/uL (0.1-1.4); ABSOLUTE NEUT (AUTO) 4.1 10^3/uL (1.7-8.2); EOSINOPHILS % (AUTO) 5.7 % (0-6); HEMATOCRIT 30.6 % (36.0-47.0); HEMOGLOBIN 10.4 g/dL (12.0-15.5); HGB HCT DIFFERENCE 0.6; LYMPHOCYTES % (AUTO) 18.3 % (13-45); MEAN CORPUSCULAR HEMOGLOBIN 33.1 pg (27.0-33.4); MEAN CORPUSCULAR HGB CONC 34.2 g/dL (32.0-36.0); MEAN CORPUSCULAR VOLUME 97 fl (80-97); MONOCYTES % (AUTO) 8.5 % (3-13); RED BLOOD COUNT 3.16 10^6/uL (3.72-5.28); RED CELL DISTRIBUTION WIDTH 13.8 % (11.5-14.0); SEGMENTED NEUTROPHILS % (AUTO) 66.5 % (42-78); WHITE BLOOD COUNT 6.1 10^3/uL (4.0-10.5)
[2017-06-30 11:57] LABS: ALANINE AMINOTRANSFERASE 24 U/L (9-52); ALBUMIN 4.1 g/dL (3.5-5.0); ALKALINE PHOSPHATASE 75 U/L (38-126); ANION GAP 13 (5-19); ASPARTATE AMINO TRANSFERASE 15 U/L (14-36); BILIRUBIN,DIRECT 0.5 mg/dL (0.0-0.4); BILIRUBIN,TOTAL 0.7 mg/dL (0.2-1.3); BLOOD UREA NITROGEN 16 mg/dL (7-20); CARBON DIOXIDE 29 mmol/L (22-30); CHLORIDE 97 mmol/L (98-107); CREATININE RESULT 8.07 mg/dL (0.52-1.25); GLUCOSE 74 mg/dL (75-110); POTASSIUM 4.4 mmol/L (3.6-5.0); SODIUM 139.1 mmol/L (137-145); TOTAL PROTEIN 6.5 g/dL (6.3-8.2)
--- NOTE | 2017-06-30 13:09 | ER Document Report ---
ED General - General Chief Complaint: Swelling Stated Complaint: FACIAL SWELLING Time Seen by Provider: 06/30/17 10:44 Mode of Arrival: Ambulatory Information source: Patient Notes: 37-year-old female dialysis patient presents with complaints of allergic reaction. Patient notes she has had some swelling around her face felt her throat was closing last night, patient took Benadryl and symptoms improved. Patient then went to dialysis this morning notes no improvement since the dialysis. Patient denies any fevers or chills denies any nausea vomiting or diarrhea denies any chest pain or new onset shortness of breath TRAVEL OUTSIDE OF THE [place] IN LAST 30 DAYS: No - HPI Onset: Yesterday Onset/Duration: Sudden Quality of pain: No pain Severity: Mild Pain Level: Denies Associated symptoms: Other Exacerbated by: Denies Relieved by: Other - Benadryl Similar symptoms previously: No Recently seen / treated by doctor: No - Related Data Allergies/Adverse Reactions: latex [Latex] Allergy (Intermediate, Verified 06/30/17 10:41) Hives tramadol [Tramadol] Allergy (Intermediate, Verified 06/30/17 10:41) Hives ibuprofen Allergy (Verified 06/30/17 10:41) naproxen sodium [From Aleve] Allergy (Verified 06/30/17 10:41) Hives Past Medical History - Social History Smoking Status: Former Smoker Cigarette use (# per day): No Chew tobacco use (# tins/day): No Smoking Education Provided: No Frequency of alcohol use: None Drug Abuse: None Family History: Reviewed & Not Pertinent - Past Medical History Cardiac Medical History: Reports: Hx Hypertension Denies: Hx Coronary Artery Disease, Hx Heart Attack Pulmonary Medical History: Denies: Hx Asthma, Hx Bronchitis, Hx COPD, Hx Pneumonia Neurological Medical History: Reports: Hx Seizures. Denies: Hx Cerebrovascular Accident Renal/ Medical History: Reports: Hx End Stage Renal Disease, Hx Hemodialysis. 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 Denies recent illness. EENT: Admits to facial swelling CARDIOVASCULAR: Denies chest pain. Denies palpitations or racing or irregular heart beat. Denies ankle edema. RESPIRATORY: Denies cough, cold, or chest congestion. Denies shortness of breath, difficulty breathing, or wheezing. GASTROINTESTINAL: Denies abdominal pain or distention. Denies nausea, vomiting , or diarrhea. Denies blood in vomitus, stools, or per rectum. Denies black, tarry stools. Denies constipation. GENITOURINARY: Denies difficulty urinating, painful urination, burning, frequency, blood in urine, or discharge. FEMALE GENITOURINARY: Denies vaginal bleeding, heavy or abnormal periods, irregular periods. Denies vaginal discharge or odor. MUSCULOSKELETAL: Denies back or neck pain or stiffness. Denies joint pain or swelling. SKIN: Denies rash, lesions or sores. HEMATOLOGIC : Denies easy bruising or bleeding. LYMPHATIC: Denies swollen, enlarged glands. NEUROLOGICAL: Denies confusion or altered mental status. Denies passing out or loss of consciousness. Denies dizziness or lightheadedness. Denies headache. Denies weakness or paralysis or loss of use of either side. Denies problems with gait or speech. Denies sensory loss, numbness, or tingling. Denies seizures. PSYCHIATRIC: Denies anxiety or stress. Denies depression, suicidal ideation, or homicidal ideation. ALL OTHER SYSTEMS REVIEWED AND NEGATIVE. PHYSICAL EXAMINATION: GENERAL: Well-appearing, well-nourished and in no acute distress. HEAD: Edema noted around the eyes bilateral no signs of infectious process EYES: Pupils equal round and reactive to light, extraocular movements intact, conjunctiva are normal. ENT: Nares patent, oropharynx clear without exudates. Moist mucous membranes. NECK: Normal range of motion, supple without lymphadenopathy LUNGS: Breath sounds clear to auscultation bilaterally and equal. No wheezes rales or rhonchi. HEART: Regular rate and rhythm without murmurs ABDOMEN: Soft, nontender, nondistended abdomen. No guarding, no rebound. No masses appreciated. Female : deferred Musculoskeletal: Normal range of motion, no pitting or edema. No cyanosis. NEUROLOGICAL: Cranial nerves grossly intact. Normal speech, normal gait. Normal sensory, motor exams PSYCH: Normal mood, normal affect. SKIN: Warm, Dry, normal turgor, no rashes or lesions noted. Dictation was performed using [employer] voice recognition software Physical Exam - Vital signs Vitals: Temp Pulse Resp BP Pulse Ox 98.5 F 75 20 149/91 H 98 06/30/17 10:37 06/30/17 10:37 06/30/17 10:37 06/30/17 10:37 06/30/17 10:37 Course - Re-evaluation Re-evalutation: 06/30/17 13:08 notes symptoms have improved significantly, given that there was throat tightness associated with this appears to be more allergic rather than fluid overload versus DVT, patient had dialysis performed today no extra fluid was noted, patient had Doppler which was negative. I believe she is stable for discharge 06/30/17 18:14 Patient also noted that she was and having vaginal bleeding, however hCG is 0. I explained to the patient this means she is not . seems quite confused since a heartbeat was supposedly noted only a few days prior, patient herself states she is not worried and that she realizes she is not , this is very strange presentation After performing a Medical Screening Examination, I estimate there is LOW risk for INTRACRANIAL HEMORRHAGE, ISCHEMIC CVA, MALIGNANT DYSRHYTHMIA, ACUTE CORONARY SYNDROME, MENINGITIS, PULMONARY EMBOLISM, or SEPSIS thus I consider the discharge disposition reasonable. I have reevaluated this patient multiple times and no significant life threatening changes are noted. The patient and I have discussed the diagnosis and risks, and we agree with discharging home with close follow-up with the understanding that symptoms and presentations can change. We also discussed returning to the Emergency Department immediately if new or worsening symptoms occur. We have discussed the symptoms which are most concerning (e.g., changing or worsening pain, weakness, vomiting, fever) that necessitate immediate return. - Vital Signs Vital signs: Temp Pulse Resp BP Pulse Ox 98.5 F 69 17 174/84 H 99 06/30/17 13:20 06/30/17 13:20 06/30/17 13:20 06/30/17 13:20 06/30/17 13:20 - Laboratory Result Diagrams: 06/30/17 11:17 06/30/17 11:17 Laboratory results interpreted by me: 06/30/17 06/30/17 11:17 11:17 RBC 3.16 L Hgb 10.4 L Hct 30.6 L Chloride 97 L Creatinine 8.07 H Est GFR ( Amer) 7 L Est GFR (Non-Af Amer) 6 L Glucose 74 L Direct Bilirubin 0.5 H Discharge - Discharge Clinical Impression: Facial edema, Vaginal bleeding Allergic Qualifiers: Encounter type: initial encounter Qualified Code(s): T78.40XA - Allergy, unspecified, initial encounter Condition: Stable Disposition: HOME, SELF-CARE Instructions: Acute Allergic Reaction ([facility]) Prescriptions: Diphenhydramine HCl [Benadryl 50 mg Capsule] 50 mg PO Q6 #20 capsule Referrals: LOCALMD,NO [Primary Care Provider] - Follow up tomorrow
[2017-06-30 13:25] VITALS: BP 174/84
--- NOTE | 2017-06-30 16:12 | XCELERA REPORT ---
[address] [address] Upper Extremity Venous Evaluation Name: MARIO WOOD Age: 37 yrs Gender: Female : 1980 Patient Status: Emergency Patient Location: ER Study Date: 06/30/2017 12:21 PM Procedure: Unilateral duplex scan of the left upper extremity veins was performed, including responses to compression and other maneuvers. Reason For Study: upper FACIAL SWELLING LUE H/O FISTULA Ordering Physician: PRINCESS CAMPA Performed By: Sophie Hooker Left Sided Venous Evaluation Normal vessel filling wall to wall, compression and augmentation as well as Colour flow down to the forearm veins. Patent arterio venous fistula noted. Interpretation Summary Normal compression, patency, spontaneous and phasic flow of the left upper extremity veins. Patent arterio venous fistula noted. : PRINCESS CAMPA > Giuseppe Naidu
== END 2017-06-30 13:25 | disposition home or self-care (01) ==
LOC: ER 10:36
DX: T78.40XA Allergy, unspecified, initial encounter (principal); R60.0 Localized edema; R09.89 Other specified symptoms and signs involving the circulatory and respiratory systems; X58.XXXA Exposure to other specified factors, initial encounter; N93.9 Abnormal uterine and vaginal bleeding, unspecified; I12.0 Hypertensive chronic kidney disease with stage 5 chronic kidney disease or end stage renal disease; N18.6 End stage renal disease; Z99.2 Dependence on renal dialysis; Z91.040 Latex allergy status; Z88.5 Allergy status to narcotic agent; Z88.6 Allergy status to analgesic agent; Z88.8 Allergy status to other drugs, medicaments and biological substances; Z87.891 Personal history of nicotine dependence
CPT/HCPCS: 99284; 36415; 84702; 85025; 80053; 93971 ×2; A9270 ×2

== ENCOUNTER 2017-07-07 17:14 | Emergency (ER) | payer MEDICARE, MEDICAID ==
[2017-07-07] MEDS ORDERED: HYDROCODONE/ACETAMINOPHEN 5-325 MG TABLET PO ONE (20:02)
--- NOTE | 2017-07-07 20:04 | ER Document Report ---
ED General - General Chief Complaint: Ankle Injury Stated Complaint: FALL/RIGHT ANKLE PAIN Time Seen by Provider: 07/07/17 19:55 Notes: 37-year-old female presents emergency department complaining of slip and fall at a grocery store in a puddle of urine several hours ago, complains of pain to her right ankle as well as some tingling to her right foot. Rates the pain as severe. TRAVEL OUTSIDE OF THE [place] IN LAST 30 DAYS: No - Related Data Allergies/Adverse Reactions: latex [Latex] Allergy (Intermediate, Verified 06/30/17 10:41) Hives tramadol [Tramadol] Allergy (Intermediate, Verified 06/30/17 10:41) Hives ibuprofen Allergy (Verified 06/30/17 10:41) naproxen sodium [From Aleve] Allergy (Verified 06/30/17 10:41) Hives Past Medical History - General Information source: Patient - Social History Smoking Status: Never Smoker Frequency of alcohol use: Occasional Drug Abuse: None Lives with: Spouse/Significant other Family History: Reviewed & Not Pertinent - Past Medical History Cardiac Medical History: Reports: Hx Hypertension Denies: Hx Coronary Artery Disease, Hx Heart Attack Pulmonary Medical History: Denies: Hx Asthma, Hx Bronchitis, Hx COPD, Hx Pneumonia Neurological Medical History: Reports: Hx Seizures. Denies: Hx Cerebrovascular Accident Renal/ Medical History: Reports: Hx End Stage Renal Disease, Hx Hemodialysis. 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 Neurological/Psychological: See HPI, Tingling Physical Exam - Vital signs Vitals: Temp Pulse Resp BP Pulse Ox 98.1 F 82 18 145/95 H 96 07/07/17 17:29 07/07/17 17:29 07/07/17 17:29 07/07/17 17:29 07/07/17 17:29 Interpretation: Hypertensive - General General appearance: Appears well, Alert In distress: None - HEENT Head: Normocephalic, Atraumatic Eyes: Normal Pupils: PERRL - Respiratory Respiratory status: No respiratory distress - Cardiovascular Pulses: Normal: Posterior tibial, Dorsalis pedis Normal capillary refill: Yes - Extremities Notes: Right ankle tender to palpation along the medial and lateral malleolus, no deformity noted, no swelling noted, no abrasions. No tenderness along the base of the fifth metatarsal, no tenderness along the metatarsals at all. Pain with inversion, some pain with eversion but less so than inversion, no difficulty with flexion or extension. - Skin Skin Temperature: Warm Skin Moisture: Dry Skin Color: Normal Course - Re-evaluation Re-evalutation: 07/07/17 21:14 X-ray negative for acute fracture, placed in Bennie wrap, counseled on ankle sprain. Put on crutches. Discharged home. - Vital Signs Vital signs: Temp Pulse Resp BP Pulse Ox 98.1 F 82 18 145/95 H 96 07/07/17 17:29 07/07/17 17:29 07/07/17 17:29 07/07/17 17:29 07/07/17 17:29 Procedures - Immobilization Right Ankle Pre-Proc Neuro Vasc Exam: Normal Immobilizer type: Bennie wrap Performed by: PCT Post-Proc Neuro Vasc Exam: Normal, Unchanged from pre-exam Alignment checked and good: Yes Discharge - Discharge Clinical Impression: Moderate right ankle sprain Qualifiers: Encounter type: initial encounter Qualified Code(s): S93.401A - Sprain of unspecified ligament of right ankle, initial encounter Ankle sprain Qualifiers: Encounter type: initial encounter Involved ligament of ankle: tibiofibular ligament Laterality: right Qualified Code(s): S93.431A - Sprain of tibiofibular ligament of right ankle, initial encounter Hypertension Qualifiers: Hypertension type: essential hypertension Qualified Code(s): I10 - Essential ( primary) hypertension Condition: Stable Disposition: HOME, SELF-CARE Additional Instructions: Sprained Ankle Your sprained ankle results from stretching or tearing of the ligaments which support the ankle. This usually results from twisting the foot inward and under. The ligaments will require time and protection in order to heal properly. Many ankle sprains are quite disabling, and should be taken seriously. The usual treatment for an ankle sprain is cold packs; protection with tape , splints, or wraps; elevation; and staying off the ankle for at least a day. As the ankle improves, you can walk IF it's not painful to bear weight. Sports are best postponed until healing is complete. More serious sprains usually require strengthening exercises after early healing. Your physician has assessed the seriousness of the ligament injury to your ankle. However, the treatment may change, depending on how your ankle progresses. If further exams were recommended, it is important that you follow through. Call the doctor if your foot becomes numb, painful, or severely swollen. You may also use acetaminophen (Tylenol) 1000 mg every 4-6 hours as needed for pain. Please be aware that many medications contain acetaminophen, do not exceed a total of 1000 mg of acetaminophen every 6 hours. Forms: Return to Work
--- NOTE | 2017-07-07 21:01 | RADIOLOGY REPORT (SQ) ---
EXAM DESCRIPTION: ANKLE RIGHT COMPLETE COMPLETED DATE/TIME: 07/07/2017 8:48 pm REASON FOR STUDY: slippled, fell, med and lat ankle pain COMPARISON: None. NUMBER OF VIEWS: Three views. TECHNIQUE: AP, lateral, and oblique radiographic images acquired of the right ankle. LIMITATIONS: None. FINDINGS: MINERALIZATION: Normal. BONES: No acute fracture or dislocation. No worrisome bone lesions. Plantar calcaneal spurring. JOINTS: No effusions. SOFT TISSUES: No soft tissue swelling. No foreign body. OTHER: No other significant finding. IMPRESSION: CALCANEAL SPURRING. NO RADIOGRAPHIC EVIDENCE OF ACUTE INJURY. TECHNICAL DOCUMENTATION: JOB ID: [id number] [employer]- All Rights Reserved
[2017-07-07 21:34] VITALS: BP 162/97
== END 2017-07-07 21:28 | disposition home or self-care (01) ==
LOC: ER 17:14
DX: S93.431A Sprain of tibiofibular ligament of right ankle, initial encounter (principal); I10 Essential (primary) hypertension; W01.0XXA Fall on same level from slipping, tripping and stumbling without subsequent striking against object, initial encounter; Y92.512 Supermarket, store or market as the place of occurrence of the external cause; M25.571 Pain in right ankle and joints of right foot; R20.2 Paresthesia of skin; I12.0 Hypertensive chronic kidney disease with stage 5 chronic kidney disease or end stage renal disease; N18.6 End stage renal disease; Z99.2 Dependence on renal dialysis; Z91.040 Latex allergy status; Z88.5 Allergy status to narcotic agent; Z88.6 Allergy status to analgesic agent
CPT/HCPCS: 99283; 73610; A9270

== ENCOUNTER 2017-07-27 10:25 | Emergency (ER) | payer MEDICARE, MEDICAID ==
--- NOTE | 2017-07-27 11:56 | RADIOLOGY REPORT (SQ) ---
EXAM DESCRIPTION: CHEST PA/LAT COMPLETED DATE/TIME: 07/27/2017 11:28 am REASON FOR STUDY: sob COMPARISON: None. EXAM PARAMETERS: NUMBER OF VIEWS: two views TECHNIQUE: Digital Frontal and Lateral radiographic views of the chest acquired. RADIATION DOSE: NA LIMITATIONS: none FINDINGS: LUNGS AND PLEURA: No opacities, masses or pneumothorax. No pleural effusion. MEDIASTINUM AND HILAR STRUCTURES: No masses or contour abnormalities. HEART AND VASCULAR STRUCTURES: Heart normal size. No evidence for failure. BONES: No acute findings. HARDWARE: None in the chest. OTHER: No other significant finding. IMPRESSION: NO SIGNIFICANT RADIOGRAPHIC FINDING IN THE CHEST. TECHNICAL DOCUMENTATION: JOB ID: [id number] [email or web address]- All Rights Reserved
--- NOTE | 2017-07-27 12:11 | ER Document Report ---
ED General - General Chief Complaint: Breathing Difficulty Stated Complaint: DIFFICULTY BREATHING Time Seen by Provider: 07/27/17 10:57 TRAVEL OUTSIDE OF THE [place] IN LAST 30 DAYS: No - HPI Patient complains to provider of: Difficulty breathing multiple complaints Notes: Patient's most urgent complaint is that she was having difficulty breathing over the last few days. Patient is a dialysis patient receives dialysis Monday states compliant with her dialysis. Patient has multiple other complaints ranging from concerned she may have brain tumors as her family has a history of brain tumors requesting MRI here in ER. Patient is also requesting blood pressure management states that she was recently seen by her air hammer operator Dr. Valles and they have been adjusting her medications but would like it to be adjusted again. Patient also complains of episodes of passing out while she is at dialysis. Patient also has swelling to her face. Patient states on her off dialysis today she normally has swelling to her face problem related to be evaluated for this as well. Patient states that her air hammer operator does not address this at this time. Patient states the symptoms have been going on for months. Patient states the main reason she came to the ER today because she was mildly short of breath denies any fevers chills nausea vomiting diarrhea. - Related Data Allergies/Adverse Reactions: latex [Latex] Allergy (Intermediate, Verified 07/27/17 10:31) Hives tramadol [Tramadol] Allergy (Intermediate, Verified 07/27/17 10:31) Hives ibuprofen Allergy (Verified 07/27/17 10:31) naproxen sodium [From Aleve] Allergy (Verified 07/27/17 10:31) Hives Past Medical History - Social History Smoking Status: Never Smoker Chew tobacco use (# tins/day): No Frequency of alcohol use: None Drug Abuse: None Family History: Reviewed & Not Pertinent - Past Medical History Cardiac Medical History: Reports: Hx Hypertension Denies: Hx Coronary Artery Disease, Hx Heart Attack Pulmonary Medical History: Denies: Hx Asthma, Hx Bronchitis, Hx COPD, Hx Pneumonia Neurological Medical History: Reports: Hx Seizures. Denies: Hx Cerebrovascular Accident Renal/ Medical History: Reports: Hx End Stage Renal Disease, Hx Hemodialysis. 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, Reports Hx Musculoskeletal Trauma Skin Medical History: Reports Hx Eczema Past Surgical History: Reports: Hx Section, Hx Orthopedic Surgery - bilateral wrist, Hx Thyroid Surgery - x3, Hx Vascular Surgery - Immunizations Immunizations up to date: Yes Hx Diphtheria, Pertussis, Tetanus Vaccination: Yes Review of Systems - Review of Systems Constitutional: No symptoms reported EENT: No symptoms reported Cardiovascular: No symptoms reported Respiratory: Short of breath Gastrointestinal: No symptoms reported Genitourinary: No symptoms reported Female Genitourinary: No symptoms reported Musculoskeletal: No symptoms reported Skin: No symptoms reported Hematologic/Lymphatic: No symptoms reported Neurological/Psychological: No symptoms reported -: Yes All other systems reviewed and negative Physical Exam - Vital signs Vitals: Temp Pulse Resp BP Pulse Ox 98.4 F 93 18 169/103 H 93 07/27/17 10:29 07/27/17 10:29 07/27/17 10:29 07/27/17 10:29 07/27/17 10:29 Interpretation: Normal - General General appearance: Appears well, Alert - HEENT Head: Normocephalic, Atraumatic Eyes: Normal Pupils: PERRL - Respiratory Respiratory status: No respiratory distress Chest status: Nontender Breath sounds: Normal Chest palpation: Normal - Cardiovascular Rhythm: Regular Heart sounds: Normal auscultation Murmur: No - Abdominal Inspection: Normal Distension: No distension Bowel sounds: Normal Tenderness: Nontender Organomegaly: No organomegaly - Back Back: Normal, Nontender - Extremities General upper extremity: Normal inspection, Nontender, Normal color, Normal ROM , Normal temperature, Other - AV fistula left arm palpable thrill General lower extremity: Normal inspection, Nontender, Normal color, Normal ROM , Normal temperature, Normal weight bearing. No: Lori's sign - Neurological Neuro grossly intact: Yes Cognition: Normal Orientation: AAOx4 Marci Coma Scale Eye Opening: Spontaneous Marci Coma Scale Verbal: Oriented Marci Coma Scale Motor: Obeys Commands [place] Coma Scale Total: 15 Speech: Normal Motor strength normal: LUE, RUE, LLE, RLE Sensory: Normal - Psychological Associated symptoms: Normal affect, Normal mood - Skin Skin Temperature: Warm Skin Moisture: Dry Skin Color: Normal Course - Re-evaluation Re-evalutation: 07/27/17 19:55 Patient with multiple complaints with chronic issues requesting immediate diagnosis today. Explained the patient that we would not be able to obtain an MRI today also explained to patient that I would not want to change her blood pressure medications at this time her blood pressures typically elevated however within acceptable parameters here in the ER that she is not symptomatic of a hypertensive urgency or emergency and that I will continue to allow her air hammer operator and trust her air hammer operator judgment and management of her blood pressure medications. Explained to the patient that I would further request evaluation by her air hammer operator is why she may be passing out a during dialysis. Patient otherwise emergent complaint of shortness of breath I find a clear etiology for this time. Patient was concerned she may be fluid overloaded however chest x-ray is negative. Encouraged patient to continue to follow-up with her nephrology team and continue to receive her dialysis as scheduled. - Vital Signs Vital signs: Temp Pulse Resp BP Pulse Ox 98.1 F 86 18 154/96 H 97 07/27/17 12:15 07/27/17 12:15 07/27/17 12:15 07/27/17 12:15 07/27/17 12:15 Discharge - Discharge Clinical Impression: possible anxiety Dyspnea Qualifiers: Dyspnea type: unspecified Qualified Code(s): R06.00 - Dyspnea, unspecified Condition: Good Disposition: HOME, SELF-CARE Instructions: Anxiety ([facility]), Dyspnea, Nonspecific ([facility]) Additional Instructions: Follow-up with your primary care physician. At this time her chest x-ray does not show any signs of fluid overload. I understand your concerns for her family history of brain tumors in the past however at this time your examination shows no neurological symptoms. I would discuss this concern with your primary care physician for possible outpatient MRI. Also understand your concerns for possible anxiety. At this time I would recommend she follow-up with resources provided for further evaluation. Return to the ER symptoms worsen. Please continue your dialysis treatment as scheduled. Referrals: [facility] [Provider Group] - Follow up as needed [facility] [Provider Group] - Follow up as needed
[2017-07-27 12:57] VITALS: BP 154/96
== END 2017-07-27 12:57 | disposition home or self-care (01) ==
LOC: ER 10:25
DX: R06.00 Dyspnea, unspecified (principal); I12.0 Hypertensive chronic kidney disease with stage 5 chronic kidney disease or end stage renal disease; N18.6 End stage renal disease; Z91.040 Latex allergy status; Z88.6 Allergy status to analgesic agent
CPT/HCPCS: 71020; 99284

== ENCOUNTER 2017-12-10 09:45 | Emergency (ER) | payer MEDICARE, MEDICAID ==
--- NOTE | 2017-12-10 10:07 | ER Document Report ---
ED Medical Screen (RME) - General Chief Complaint: Abdominal Pain Stated Complaint: ABDOMINAL PAIN Time Seen by Provider: 12/10/17 09:58 Notes: Patient is complaining of pain and "my butt" and abdomen which started about 4 AM this morning. She has not had any swelling in her backside and has not had any rectal bleeding. Says her looked at the area and told her that it was not swollen. Patient says she has had vomiting for a couple of weeks and has been unable to take in any food. Says she is vomiting 5 or 6 times a day. Also has had diarrhea for weeks. Has had similar symptoms for a long time and had some endoscopy procedures of the upper and lower GI done a few months ago and was told it found nothing abnormal. Patient is a dialysis patient, Monday, Monday, and Monday dialysis. Has not missed her dialysis. Says her dry weight used to be 101 kg and now it is only 82 kg. Patient has had C-sections and a fistula in her abdomen for peritoneal dialysis in the past. On no control. Patient is tearful in pain complaining primarily of pain in her butt. TRAVEL OUTSIDE OF THE [place] IN LAST 30 DAYS: No - Related Data Allergies/Adverse Reactions: latex [Latex] Allergy (Intermediate, Verified 07/27/17 10:31) Hives tramadol [Tramadol] Allergy (Intermediate, Verified 07/27/17 10:31) Hives ibuprofen Allergy (Verified 07/27/17 10:31) naproxen sodium [From Aleve] Allergy (Verified 07/27/17 10:31) Hives Past Medical History - Social History Chew tobacco use (# tins/day): No Frequency of alcohol use: None Drug Abuse: None - Past Medical History Cardiac Medical History: Reports: Hx Hypertension Denies: Hx Coronary Artery Disease, Hx Heart Attack Pulmonary Medical History: Denies: Hx Asthma, Hx Bronchitis, Hx COPD, Hx Pneumonia Neurological Medical History: Reports: Hx Seizures. Denies: Hx Cerebrovascular Accident Renal/ Medical History: Reports: Hx End Stage Renal Disease, Hx Hemodialysis. 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, Reports Hx Musculoskeletal Trauma Skin Medical History: Reports Hx Eczema Past Surgical History: Reports: Hx Section, Hx Orthopedic Surgery - bilateral wrist, Hx Thyroid Surgery - x3, Hx Vascular Surgery - Immunizations Immunizations up to date: Yes Hx Diphtheria, Pertussis, Tetanus Vaccination: Yes Physical Exam - Vital signs Vitals: Temp Pulse Resp BP Pulse Ox 98.5 F 90 16 162/97 H 100 12/10/17 09:56 12/10/17 09:56 12/10/17 09:56 12/10/17 09:56 12/10/17 09:56 Course - Vital Signs Vital signs: Temp Pulse Resp BP Pulse Ox 98.5 F 90 16 162/97 H 100 12/10/17 09:56 12/10/17 09:56 12/10/17 09:56 12/10/17 09:56 12/10/17 09:56
[2017-12-10] MEDS ORDERED: FENTANYL CITRATE INJ/PF 100 MCG/2 ML AMPUL IV ONE ×2 (10:10→12:41)
[2017-12-10] MEDS ORDERED: HYDROMORPHONE HCL INJ/PF 2 MG/ML AMPULE IV ONE (10:11)
[2017-12-10] MEDS ORDERED: ONDANSETRON HCL INJ/PF 4 MG/2 ML SDV IV ONE (10:25)
[2017-12-10 10:39] LABS: ABSOLUTE BASOPHILS # (AUTO) 0.1 10^3/uL (0.0-0.2); ABSOLUTE EOSINOPHILS # (AUTO) 0.3 10^3/uL (0.0-0.6); ABSOLUTE LYMPHOCYTES (AUTO) 1.4 10^3/uL (0.5-4.7); ABSOLUTE MONOCYTES (AUTO) 1.1 10^3/uL (0.1-1.4); ABSOLUTE NEUT (AUTO) 8.9 10^3/uL (1.7-8.2); BASOPHILS % (AUTO) 0.8 % (0-2); EOSINOPHILS % (AUTO) 2.5 % (0-6); HEMATOCRIT 37.9 % (36.0-47.0); HEMOGLOBIN 12.5 g/dL (12.0-15.5); LYMPHOCYTES % (AUTO) 12.3 % (13-45); MEAN CORPUSCULAR HEMOGLOBIN 32.1 pg (27.0-33.4); MEAN CORPUSCULAR VOLUME 97 fl (80-97); PLATELET COUNT 270 10^3/uL (150-450); RED BLOOD COUNT 3.91 10^6/uL (3.72-5.28); RED CELL DISTRIBUTION WIDTH 14.1 % (11.5-14.0); SEGMENTED NEUTROPHILS % (AUTO) 75.4 % (42-78); TOTAL CELLS COUNTED % (AUTO) 100 %; WHITE BLOOD COUNT 11.8 10^3/uL (4.0-10.5)
--- NOTE | 2017-12-10 11:25 | ER Document Report ---
ED General - General Chief Complaint: Abdominal Pain Stated Complaint: ABDOMINAL PAIN Time Seen by Provider: 12/10/17 09:58 Mode of Arrival: Ambulatory Information source: Patient Notes: 37-year-old female history of dialysis since she was 12 years old Wednesdays states she never misses dialysis since with complaints of rectal pain and abdominal pain. Patient denies any fevers or chills notes the pain started this morning. Denies any trauma but does note that she has seizures often and that she may have fallen on her buttocks and cause pain without remembering. She denies any rectal bleeding patient does not produce urine patient does not do peritoneal dialysis. Note pain goes from abd to the back but worst in the buttock region TRAVEL OUTSIDE OF THE [place] IN LAST 30 DAYS: No - HPI Onset: This morning Onset/Duration: Sudden Quality of pain: Achy Severity: Mild Pain Level: 1 Associated symptoms: Nausea, Vomiting, Other Exacerbated by: Sitting Relieved by: Denies Similar symptoms previously: No Recently seen / treated by doctor: No - Related Data Allergies/Adverse Reactions: latex [Latex] Allergy (Intermediate, Verified 07/27/17 10:31) Hives tramadol [Tramadol] Allergy (Intermediate, Verified 07/27/17 10:31) Hives ibuprofen Allergy (Verified 07/27/17 10:31) naproxen sodium [From Aleve] Allergy (Verified 07/27/17 10:31) Hives Past Medical History - Social History Smoking Status: Never Smoker Cigarette use (# per day): No Chew tobacco use (# tins/day): No Smoking Education Provided: No Frequency of alcohol use: None Drug Abuse: None Family History: Reviewed & Not Pertinent Patient has suicidal ideation: No Patient has homicidal ideation: No - Past Medical History Cardiac Medical History: Reports: Hx Hypertension Denies: Hx Coronary Artery Disease, Hx Heart Attack Pulmonary Medical History: Denies: Hx Asthma, Hx Bronchitis, Hx COPD, Hx Pneumonia Neurological Medical History: Reports: Hx Seizures. Denies: Hx Cerebrovascular Accident Renal/ Medical History: Reports: Hx End Stage Renal Disease, Hx Hemodialysis. 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 Denies recent illness. EENT: Denies eye, ear, throat, or mouth pain or symptoms. Denies nasal or sinus congestion or discharge. Denies throat, tongue, or mouth swelling or difficulty swallowing. CARDIOVASCULAR: Denies chest pain. Denies palpitations or racing or irregular heart beat. Denies ankle edema. RESPIRATORY: Denies cough, cold, or chest congestion. Denies shortness of breath, difficulty breathing, or wheezing. GASTROINTESTINAL: Admits to abdominal pain back pain nausea vomiting, buttocks pain GENITOURINARY: Denies difficulty urinating, painful urination, burning, frequency, blood in urine, or discharge. FEMALE GENITOURINARY: Denies vaginal bleeding, heavy or abnormal periods, irregular periods. Denies vaginal discharge or odor. MUSCULOSKELETAL: Denies back or neck pain or stiffness. Denies joint pain or swelling. SKIN: Denies rash, lesions or sores. HEMATOLOGIC : Denies easy bruising or bleeding. LYMPHATIC: Denies swollen, enlarged glands. NEUROLOGICAL: Denies confusion or altered mental status. Denies passing out or loss of consciousness. Denies dizziness or lightheadedness. Denies headache. Denies weakness or paralysis or loss of use of either side. Denies problems with gait or speech. Denies sensory loss, numbness, or tingling. Denies seizures. PSYCHIATRIC: Denies anxiety or stress. Denies depression, suicidal ideation, or homicidal ideation. ALL OTHER SYSTEMS REVIEWED AND NEGATIVE. PHYSICAL EXAMINATION: GENERAL: Well-appearing, well-nourished and in no acute distress. HEAD: Atraumatic, normocephalic. EYES: Pupils equal round and reactive to light, extraocular movements intact, conjunctiva are normal. ENT: Nares patent, oropharynx clear without exudates. Moist mucous membranes. NECK: Normal range of motion, supple without lymphadenopathy LUNGS: Breath sounds clear to auscultation bilaterally and equal. No wheezes rales or rhonchi. HEART: Regular rate and rhythm without murmurs ABDOMEN: Soft,generalized tenderness no rebound guarding , tenedr bilateral flanks, buttocks Female : Rectal examination performed with nurse Nikki in the room, 2 hemorrhods, non thrombose Musculoskeletal: Normal range of motion, no pitting or edema. No cyanosis. NEUROLOGICAL: Cranial nerves grossly intact. Normal speech, normal gait. Normal sensory, motor exams PSYCH: Normal mood, normal affect. SKIN: dialysis access left arm Dictation was performed using [employer] voice recognition software Physical Exam - Vital signs Vitals: Temp Pulse Resp BP Pulse Ox 98.5 F 90 16 162/97 H 100 12/10/17 09:56 12/10/17 09:56 12/10/17 09:56 12/10/17 09:56 12/10/17 09:56 Course - Re-evaluation Re-evalutation: 12/10/17 11:25 I will perform a CT with oral contrast of the abdomen and pelvis to rule out any obvious infectious process, I am not seeing anything on the physical examination, may be a pilonidal cyst that is too early to see 12/10/17 14:53 CT noted no acute abnormality, all findings explained ot patient, I reexamined the patient, still no mass , erythema noted, pt beleives it is all secondary to a fall while having a seizure, given that i have no sign of fever, normal otherwise ct I will give her GI follow up for her rectal pain 12/10/17 15:11 After performing a Medical Screening Examination, I estimate there is LOW risk for ACUTE APPENDICITIS, BOWEL OBSTRUCTION, ACUTE CHOLECYSTITIS, PERFORATED DIVERTICULITIS, INCARCERATED HERNIA, PANCREATITIS, PELVIC INFLAMMATORY DISEASE, PERFORATED ULCER, ECTOPIC , or TUBO-OVARIAN ABSCESS, thus I consider the discharge disposition reasonable. Also, there is no evidence or peritonitis , sepsis, or toxicity. I have reevaluated this patient multiple times and no significant life threatening changes are noted. The patient and I have discussed the diagnosis and risks, and we agree with discharging home with close follow-up with the understanding that symptoms and presentations can change. We also discussed returning to the Emergency Department immediately if new or worsening symptoms occur. We have discussed the symptoms which are most concerning (e.g., bloody stool, fever, changing or worsening pain, vomiting) that necessitate immediate return. - Vital Signs Vital signs: Temp Pulse Resp BP Pulse Ox 98.4 F 87 16 173/105 H 98 12/10/17 15:08 12/10/17 15:08 12/10/17 15:08 12/10/17 15:08 12/10/17 15:08 - Laboratory Result Diagrams: 12/10/17 10:15 12/10/17 11:37 Laboratory results interpreted by me: 12/10/17 12/10/17 10:15 11:37 WBC 11.8 H RDW 14.1 H Lymphocytes % 12.3 L Absolute Neutrophils 8.9 H Sodium 135.7 L BUN 25 H Creatinine 16.00 H Est GFR ( Amer) 3 L Est GFR (Non-Af Amer) 3 L Calcium 7.6 L Direct Bilirubin 0.5 H Total Protein 6.2 L - Diagnostic Test Radiology reviewed: Image reviewed, Reports reviewed - reports given to patient Discharge - Discharge Clinical Impression: Rectal pain Abdominal pain Qualifiers: Abdominal location: generalized Qualified Code(s): R10.84 - Generalized abdominal pain Condition: Stable Disposition: HOME, SELF-CARE Instructions: Abdominal Pain ([facility]) Prescriptions: Hydrocodone/Acetaminophen [[place] 5-325 mg Tablet] 1 tab PO Q6 #10 tablet Metoclopramide HCl [Reglan 10 mg Tablet] 1 - 2 tab PO ASDIR PRN #14 tablet PRN Reason: Referrals: MELL TODD MD [Primary Care Provider] - Follow up as needed TOBIAS HARRIS MD [ACTIVE STAFF] - Follow up in 3-5 days
[2017-12-10 12:09] LABS: ALANINE AMINOTRANSFERASE 31 U/L (9-52); ALBUMIN 3.9 g/dL (3.5-5.0); ALKALINE PHOSPHATASE 70 U/L (38-126); ANION GAP 13 (5-19); ASPARTATE AMINO TRANSFERASE 29 U/L (14-36); BILIRUBIN,DIRECT 0.5 mg/dL (0.0-0.4); BILIRUBIN,TOTAL 0.5 mg/dL (0.2-1.3); BLOOD UREA NITROGEN 25 mg/dL (7-20); CALCIUM 7.6 mg/dL (8.4-10.2); CARBON DIOXIDE 23 mmol/L (22-30); CHLORIDE 100 mmol/L (98-107); GLUCOSE 82 mg/dL (75-110); POTASSIUM 4.4 mmol/L (3.6-5.0); SODIUM 135.7 mmol/L (137-145); TOTAL PROTEIN 6.2 g/dL (6.3-8.2)
[2017-12-10] MEDS ORDERED: METOCLOPRAMIDE HCL INJ/PF 10 MG/2 ML SDV IV ONE (12:41)
[2017-12-10] MEDS ORDERED: NORMAL SALINE 1000 ML 1,000 ML IV ONE (12:41)
--- NOTE | 2017-12-10 14:37 | RADIOLOGY REPORT (SQ) ---
EXAM DESCRIPTION: CT ABD/PELVIS ORAL ONLY COMPLETED DATE/TIME: 12/10/2017 2:19 pm REASON FOR STUDY: ckd, abd , rectal pain COMPARISON: None. TECHNIQUE: CT scan of the abdomen and pelvis performed without intravenous or oral contrast. Images reviewed with lung, soft tissue, and bone windows. Reconstructed coronal and sagittal MPR images revi ewed. All images stored on PACS. All CT scanners at this facility use dose modulation, iterative reconstruction, and/or weight based d osing when appropriate to reduce radiation dose to as low as reasonably achievable (ALARA). [facility]: Dose Right [facility]: CareDose [facility]: Dose Right [facility]: Teradose 4D [facility]: [employer] RADIATION DOSE: CT Rad equipment meets quality standard of care and radiation dose reduction techniq ues were employed. CTDIvol: 8.2 mGy. DLP: 436 mGy-cm.mGy. LIMITATIONS: None. FINDINGS: LOWER CHEST: No significant findings. No nodules or infiltrates. NON-CONTRASTED LIVER, SPLEEN, ADRENALS: Evaluation limited by lack of IV contrast. No identified sign ificant masses. PANCREAS: No masses. No peripancreatic inflammatory changes. GALLBLADDER: No identified stones by CT criteria. No inflammatory changes to suggest cholecystitis. RIGHT KIDNEY AND URETER: Multiple cortical cysts of variable size and density. No suspicious masses. Assessment limited by lack of IV contrast. No significant calcifications. No hydronephrosis or h ydroureter. LEFT KIDNEY AND URETER: Multiple cortical cysts of variable size and density. No suspicious masses. Assessment limited by lack of IV contrast. No significant calcifications. No hydronephrosis or hy droureter. AORTA AND RETROPERITONEUM: No aneurysm. No retroperitoneal masses or adenopathy. BOWEL AND PERITONEAL CAVITY: No obvious masses or inflammatory changes. No free fluid. APPENDIX: Normal. PELVIS, BLADDER, AND ABDOMINAL WALL:Mixed density predominantly fatty lesion in the left ovary measur ing 3.3 x 3.7 cm. Focal calcification. No free fluid. Bladder normal. BONES: No significant findings. OTHER: No other significant finding. IMPRESSION: 1. PREDOMINANTLY FATTY LESION IN THE LEFT OVARY MEASURING 3.3 X 3.7 CM, MOST CONSISTENT WITH A DERMOI D. 2. MULTIPLE CYSTS IN BOTH KIDNEYS OF VARIABLE SIZE AND DENSITY. 3. NO OTHER SIGNIFICANT OR ACUTE PROCESS IN THE ABDOMEN OR PELVIS. COMMENT: Quality ID # [id number]: Final reports with documentation of one or more dose reduction techniques (e.g., Automated exposure control, adjustment of the mA and/or kV according to patient size, use of iterative reconstruction technique) TECHNICAL DOCUMENTATION: JOB ID: [id number] [employer]- All Rights Reserved Reading location - IP/workstation name: [email or web address]
[2017-12-10 15:09] VITALS: BP 173/105
== END 2017-12-10 15:05 | disposition home or self-care (01) ==
LOC: ER 09:45
DX: R10.84 Generalized abdominal pain (principal); K64.9 Unspecified hemorrhoids; K62.89 Other specified diseases of anus and rectum; M54.9 Dorsalgia, unspecified; I12.0 Hypertensive chronic kidney disease with stage 5 chronic kidney disease or end stage renal disease; N18.6 End stage renal disease; Z99.2 Dependence on renal dialysis; R11.2 Nausea with vomiting, unspecified; Z91.040 Latex allergy status; Z88.5 Allergy status to narcotic agent; Z88.6 Allergy status to analgesic agent
CPT/HCPCS: 96376; 99284; 96361; 96374; 96375; 36415; 83690; 84703; 85025; 80053; 74176; J3010; J2765; J1170; J2405; J7030

== ENCOUNTER 2017-12-20 06:45 | Emergency (ER) | payer MEDICARE, MEDICAID ==
--- NOTE | 2017-12-20 06:55 | ER Document Report ---
ED Seizure - General Chief Complaint: Probable Seizure Stated Complaint: POSSIBLE SEIZURE Time Seen by Provider: 12/20/17 06:54 Notes: The patient is a 37-year-old female, past medical history ESRD (MWF), prior seizure history (no longer on any antiepileptics), presents after a brief seizure earlier today. According to her , the patient hit the back of her head on a hard object. Patient has had increased seizure frequency over the past several months and recently moved from [place]. She is also complaining of left buttock pain where she landed a few days ago. She is due for dialysis this morning. She denies focal weakness, numbness, tingling, blurry vision, chest pain, shortness of breath, nausea, vomiting, neck stiffness or fevers. - Related Data Allergies/Adverse Reactions: latex [Latex] Allergy (Intermediate, Verified 07/27/17 10:31) Hives tramadol [Tramadol] Allergy (Intermediate, Verified 07/27/17 10:31) Hives ibuprofen Allergy (Verified 07/27/17 10:31) naproxen sodium [From Aleve] Allergy (Verified 07/27/17 10:31) Hives Past Medical History - General Information source: Patient - Social History Smoking Status: Unknown if Ever Smoked Family History: Reviewed & Not Pertinent - Past Medical History Cardiac Medical History: Reports: Hx Hypertension Denies: Hx Coronary Artery Disease, Hx Heart Attack Pulmonary Medical History: Denies: Hx Asthma, Hx Bronchitis, Hx COPD, Hx Pneumonia Neurological Medical History: Reports: Hx Seizures. Denies: Hx Cerebrovascular Accident Renal/ Medical History: Reports: Hx End Stage Renal Disease, Hx Hemodialysis. 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 RESPIRATORY: -cough, -SOB GASTROINTESTINAL: -abdominal pain, -nausea, -vomiting, -diarrhea MUSCULOSKELETAL: -back pain, -neck pain SKIN: +left buttock hematoma HEMATOLOGIC: -easy bruising or bleeding. LYMPHATIC: -swollen, enlarged glands. NEUROLOGICAL: -altered mental status or loss of consciousness, +headache, + seizure, -neurologic symptoms PSYCHIATRIC: -anxiety, -depression. ALL OTHER SYSTEMS REVIEWED AND NEGATIVE. Physical Exam - Vital signs Vitals: Resp Pulse Ox 11 L 100 12/20/17 06:55 12/20/17 06:55 - Notes Notes: PHYSICAL EXAMINATION: GENERAL: Well-appearing, well-nourished and in no acute distress. HEAD: Atraumatic, normocephalic. Tenderness over left posterior scalp. EYES: Pupils equal round and reactive to light, extraocular movements intact, sclera anicteric, conjunctiva are normal. ENT: nares patent, oropharynx clear without exudates. Moist mucous membranes. NECK: Normal range of motion, supple without lymphadenopathy LUNGS: Breath sounds clear to auscultation bilaterally and equal. No wheezes rales or rhonchi. HEART: Regular rate and rhythm without murmurs ABDOMEN: Soft, nontender, normoactive bowel sounds. No guarding, no rebound. No masses appreciated. EXTREMITIES: Normal range of motion, no pitting or edema. No cyanosis. NEUROLOGICAL: Cranial nerves grossly intact. Normal speech, normal gait. Normal sensory and motor exams. PSYCH: Normal mood, normal affect. SKIN: Left buttock hematoma. Course - Re-evaluation Re-evalutation: Patient appears well and is in no acute distress. Her blood work is consistent with her known ESRD and she is due for dialysis this morning. Head CT does not show any acute bleeds. Since patient just moved here from [place], she has had multipke seizures over the past few months and has been off her seizure medications for years, will begin Keppra with dose adjustment for her ESRD and have her follow-up with neurology. She does not drive. Given very strict return precautions and she understands. - Vital Signs Vital signs: Temp Pulse Resp BP Pulse Ox 9 L 164/103 H 100 12/20/17 08:28 12/20/17 08:28 12/20/17 08:28 - Laboratory Result Diagrams: 12/20/17 07:11 Laboratory results interpreted by me: 12/20/17 07:11 BUN 31 H Creatinine 12.25 H Est GFR ( Amer) 4 L Est GFR (Non-Af Amer) 4 L Total Protein 5.8 L - Diagnostic Test Radiology reviewed: Image reviewed, Reports reviewed Radiology results interpreted by me: Head CT: NAD Discharge - Discharge Clinical Impression: Recurrent seizures, Multiple contusions Condition: Stable Disposition: HOME, SELF-CARE Additional Instructions: Seizure, Known Epileptic You have had a seizure. Seizures may "break through" in an epileptic due to stress of infection or injury, a change in blood chemistry, or drug and alcohol use. Another common cause is failure to take medication as prescribed. Your doctor has evaluated your situation for the likely cause of this seizure. It is important that you follow his advice concerning any medication changes and follow-up care. Further testing of anti-seizure medication levels in your blood may be necessary. If you have a special needs bus driver's license, it's important that you DO NOT DRIVE until given permission by your physician. This seizure must be reported to the special needs bus driver 's license bureau. Call the doctor or return if seizures recur, or if new or unusual symptoms arise -- such as severe headache, confusion, excessive sleepiness, local weakness or numbness, neck stiffness, or fever. Contusion Your injury has resulted in a contusion -- a crushing of the deep tissues. No injury to important structures was detected during the physician's exam. Contusions vary in the amount of pain they cause, and in the length of time required for healing. Typically, the area will become bruised, and will remain painful to touch for two or three weeks. However, most patients are back to working and playing within a few days. After the initial period of rest and cold-packs, your symptoms (together with the doctor's recommendations) will determine how rapidly you can get back to full activity. Usually this means "do what feels okay, but don't do things that hurt." If re-examination was recommended, it's important to follow up as instructed. Call the doctor or return any time if pain increases, if swelling becomes severe, if you develop numbness or weakness in an injured extremity, or if any other alarming symptoms occur. Prescriptions: Levetiracetam [Keppra 500 mg Tablet] 500 mg PO DAILY 30 Days tablet Forms: Elevated Blood Pressure Referrals: MELL TODD MD [Primary Care Provider] - Follow up as needed LUKAS SEALS MD [NO LOCAL MD] - Follow up as needed
[2017-12-20] MEDS ORDERED: ACETAMINOPHEN 325 MG TABLET PO ONE (07:11)
[2017-12-20 08:03] LABS: ALANINE AMINOTRANSFERASE 29 U/L (9-52); ALBUMIN 3.6 g/dL (3.5-5.0); ALKALINE PHOSPHATASE 86 U/L (38-126); ANION GAP 14 (5-19); ASPARTATE AMINO TRANSFERASE 18 U/L (14-36); BILIRUBIN,DIRECT 0.3 mg/dL (0.0-0.4); BILIRUBIN,TOTAL 0.3 mg/dL (0.2-1.3); BLOOD UREA NITROGEN 31 mg/dL (7-20); CALCIUM 8.6 mg/dL (8.4-10.2); CARBON DIOXIDE 27 mmol/L (22-30); CHLORIDE 100 mmol/L (98-107); GLUCOSE 85 mg/dL (75-110); POTASSIUM 4.4 mmol/L (3.6-5.0); SODIUM 140.7 mmol/L (137-145); TOTAL PROTEIN 5.8 g/dL (6.3-8.2)
--- NOTE | 2017-12-20 08:40 | RADIOLOGY REPORT (SQ) ---
EXAM DESCRIPTION: CT HEAD WITHOUT COMPLETED DATE/TIME: 12/20/2017 8:30 am REASON FOR STUDY: seizure, posterior head injury COMPARISON: April 2016 TECHNIQUE: Axial images acquired through the brain without intravenous contrast. Images reviewed wi th bone, brain and subdural windows. Images stored on PACS. All CT scanners at this facility use dose modulation, iterative reconstruction, and/or weight based d osing when appropriate to reduce radiation dose to as low as reasonably achievable (ALARA). [facility]: Dose Right [facility]: CareDose [facility]: Dose Right [facility]: Teradose 4D [facility]: [employer] RADIATION DOSE: CT Rad equipment meets quality standard of care and radiation dose reduction techniq ues were employed. CTDIvol: 64.6 mGy. DLP: 1034 mGy-cm. mGy. LIMITATIONS: None. FINDINGS: VENTRICLES: Normal size and contour. CEREBRUM: No masses. No hemorrhage. No midline shift. No evidence for acute infarction. Normal gra y/white matter differentiation. No areas of low density in the white matter. CEREBELLUM: No masses. No hemorrhage. No alteration of density. No evidence for acute infarction. EXTRAAXIAL SPACES: No fluid collections. No masses. ORBITS AND GLOBE: No intra- or extraconal masses. Normal contour of globe without masses. CALVARIUM: No fracture. PARANASAL SINUSES: No fluid or mucosal thickening. SOFT TISSUES: No mass or hematoma. OTHER: No other significant finding. IMPRESSION: NORMAL BRAIN CT WITHOUT CONTRAST. EVIDENCE OF ACUTE STROKE: NO. COMMENT: Quality ID # [id number]: Final reports with documentation of one or more dose reduction techniques (e.g., Automated exposure control, adjustment of the mA and/or kV according to patient size, use of iterative reconstruction technique) TECHNICAL DOCUMENTATION: JOB ID: [id number] [employer]- All Rights Reserved Reading location - IP/workstation name: [email or web address]
[2017-12-20] MEDS ORDERED: LEVETIRACETAM 500 MG TABLET PO ONE (08:48)
[2017-12-20 09:04] VITALS: BP 167/92
== END 2017-12-20 09:08 | disposition home or self-care (01) ==
LOC: ER 06:45
DX: G40.909 Epilepsy, unspecified, not intractable, without status epilepticus (principal); I12.0 Hypertensive chronic kidney disease with stage 5 chronic kidney disease or end stage renal disease; N18.6 End stage renal disease; Z99.2 Dependence on renal dialysis; T14.8XXA Other injury of unspecified body region, initial encounter; X58.XXXA Exposure to other specified factors, initial encounter; Z91.040 Latex allergy status; Z88.6 Allergy status to analgesic agent
CPT/HCPCS: 99284; 36415; 82962; 80053; 70450; A9270 ×2

== ENCOUNTER 2018-01-11 17:43 | Emergency (ER) | payer MEDICARE, MEDICAID ==
[2018-01-11] MEDS ORDERED: OXYCODONE-ACETAMINOPHEN 5-325 MG TABLET PO ONE (17:59)
[2018-01-11] MEDS ORDERED: LIDOCAINE 1%/EPINEPHRINE INJ 20 ML VIAL INJ ONE (18:23)
[2018-01-11] MEDS ORDERED: ONDANSETRON 4 MG TAB.RAPDIS PO ONE (18:23)
[2018-01-11] MEDS ORDERED: LIDOCAINE 2% INJ (20 MG/ML) 20 ML MDV INJ ONE (18:55)
--- NOTE | 2018-01-11 18:57 | RADIOLOGY REPORT (SQ) ---
EXAM DESCRIPTION: FINGER RIGHT COMPLETED DATE/TIME: 01/11/2018 6:23 pm REASON FOR STUDY: finger injury, deformity COMPARISON: None. NUMBER OF VIEWS: Three views. TECHNIQUE: AP, lateral, and oblique images acquired of the right thumb. LIMITATIONS: None. FINDINGS: MINERALIZATION: Normal. BONES: No acute fracture or dislocation. No worrisome bone lesions. SOFT TISSUES: There is soft tissue swelling on the thumb. OTHER: No other significant finding. IMPRESSION: NO RADIOGRAPHIC EVIDENCE OF ACUTE INJURY. COMMENT: SITE OF TRAUMA/COMPLAINT MARKED/STAMP COMPLETED: YES. TECHNICAL DOCUMENTATION: JOB ID: [id number] [employer]- All Rights Reserved Reading location - IP/workstation name: [email or web address]
--- NOTE | 2018-01-11 19:24 | ER Document Report ---
ED Hand/Wrist Injury - General Chief Complaint: Hand Injury Stated Complaint: RIGHT THUMB PAIN Time Seen by Provider: 01/11/18 17:55 Mode of Arrival: Ambulatory Information source: Patient Notes: Patient is a 37-year-old female on dialysis with a history of seizures who presents to the ER today post seizure at home in her bed, unwitnessed for right finger pain, thumb. Patient states that she woke up with her thumb hurting and over the course of the next few hours developed a very large blister to the thumb and worsening pain. Patient denies any numbness or tingling, pain anywhere else. Does not obviously remember what they have happened to the thumb. Patient denies that there was anything around her that may have burned the thumb. She states that she started having her seizure in the bed and ended in the bed. TRAVEL OUTSIDE OF THE [place] IN LAST 30 DAYS: No - Related Data Allergies/Adverse Reactions: latex [Latex] Allergy (Intermediate, Verified 01/11/18 17:44) Hives tramadol [Tramadol] Allergy (Intermediate, Verified 01/11/18 17:44) Hives ibuprofen Allergy (Verified 01/11/18 17:44) naproxen sodium [From Aleve] Allergy (Verified 01/11/18 17:44) Hives Past Medical History - General Information source: Patient - Social History Smoking Status: Unknown if Ever Smoked Family History: Reviewed & Not Pertinent Patient has suicidal ideation: No Patient has homicidal ideation: No - Past Medical History Cardiac Medical History: Reports: Hx Hypertension Denies: Hx Coronary Artery Disease, Hx Heart Attack Pulmonary Medical History: Denies: Hx Asthma, Hx Bronchitis, Hx COPD, Hx Pneumonia Neurological Medical History: Reports: Hx Seizures. Denies: Hx Cerebrovascular Accident Renal/ Medical History: Reports: Hx End Stage Renal Disease, Hx Hemodialysis. 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, Reports Hx Musculoskeletal Trauma Skin Medical History: Reports Hx Eczema Past Surgical History: Reports: Hx Section, Hx Orthopedic Surgery - bilateral wrist, Hx Thyroid Surgery - x3, Hx Vascular Surgery - Immunizations Immunizations up to date: Yes Hx Diphtheria, Pertussis, Tetanus Vaccination: Yes Review of Systems - Review of Systems Constitutional: No symptoms reported EENT: No symptoms reported Cardiovascular: No symptoms reported Respiratory: No symptoms reported Gastrointestinal: No symptoms reported Genitourinary: No symptoms reported Female Genitourinary: No symptoms reported Musculoskeletal: See HPI Skin: See HPI Hematologic/Lymphatic: No symptoms reported Neurological/Psychological: No symptoms reported Physical Exam - Vital signs Vitals: Temp Pulse Resp BP Pulse Ox 98.2 F 84 18 197/103 H 99 01/11/18 17:47 01/11/18 17:47 01/11/18 17:47 01/11/18 17:47 01/11/18 17:47 - Notes Notes: PHYSICAL EXAMINATION: GENERAL: Well-appearing and in no acute distress. HEAD: Atraumatic, normocephalic. EYES: Pupils equal round and reactive to light, extraocular movements intact, sclera anicteric, conjunctiva are normal. NECK: Normal range of motion, supple without lymphadenopathy LUNGS: CTAB and equal. No wheezes rales or rhonchi. HEART: Regular rate and rhythm without murmurs EXTREMITIES: Cannot assess range of motion secondary to pain and blister to the right thumb, no pitting edema. No cyanosis. NEUROLOGICAL: Cranial nerves grossly intact. Normal sensory/motor exams. PSYCH: Normal mood, normal affect. SKIN: Warm, Dry, normal turgor, large blister overlying three quarters of the dorsal surface of the right thumb, tender to palpation, fluid-filled Course - Re-evaluation Re-evalutation: 01/11/18 20:15 There is no erythema, abrasion, laceration, evidence of burn or other injury to the thumb, patient was holding initially in a way that made it look angulated, however x-ray of the right thumb negative for any acute pathology or dislocation. Digital block was placed so that I could manipulate the thumb and make sure she had normal range of motion which she did in all joints. Blister will not be drained as that increases risk of infection and patient is on dialysis. Patient agrees with this plan. I will provide patient with some pain medication as I do realize that she injured thumb during her seizure. - Vital Signs Vital signs: Temp Pulse Resp BP Pulse Ox 98.0 F 70 18 182/104 H 100 01/11/18 19:39 01/11/18 19:39 01/11/18 19:39 01/11/18 19:39 01/11/18 19:39 Procedures - Additional Procedures Digital block Time performed: 18:00 Notes: 01/11/18 20:17 Digital block to the right thumb with medial and lateral insertion of lidocaine 2%, approximately 2 cc in each space with 22-gauge needle, patient tolerated well Discharge - Discharge Clinical Impression: Blister of right thumb Qualifiers: Encounter type: initial encounter Qualified Code(s): S60.321A - Blister ( nonthermal) of right thumb, initial encounter Injury of right thumb Qualifiers: Encounter type: initial encounter Qualified Code(s): S69.91XA - Unspecified injury of right wrist, hand and finger(s), initial encounter Condition: Stable Disposition: HOME, SELF-CARE Additional Instructions: Return immediately for any new or worsening symptoms. Follow up with primary care provider, call tomorrow to make followup appointment. Prescriptions: Hydrocodone/Acetaminophen [[place] 5-325 mg Tablet] 1 tab PO Q4 PRN #15 tablet PRN Reason: Referrals: MELL TODD MD [Primary Care Provider] - Follow up as needed
[2018-01-11 19:41] VITALS: BP 182/104
== END 2018-01-11 19:41 | disposition home or self-care (01) ==
LOC: ER 17:43
DX: S60.321A Blister (nonthermal) of right thumb, initial encounter (principal); M79.644 Pain in right finger(s); X58.XXXA Exposure to other specified factors, initial encounter; I12.0 Hypertensive chronic kidney disease with stage 5 chronic kidney disease or end stage renal disease; N18.6 End stage renal disease; Z99.2 Dependence on renal dialysis; Z91.040 Latex allergy status; Z88.5 Allergy status to narcotic agent; Z88.6 Allergy status to analgesic agent; Z88.8 Allergy status to other drugs, medicaments and biological substances
CPT/HCPCS: 99283; 73140; 64450; J3490; A9270 ×2; S0119

== ENCOUNTER 2018-01-14 01:01 | Emergency (ER) | payer MEDICARE, MEDICAID ==
[2018-01-14 01:19] VITALS: BP 173/100
[2018-01-14] MEDS ORDERED: ONDANSETRON 4 MG TAB.RAPDIS PO ONE (01:32)
[2018-01-14] MEDS ORDERED: ACETAMINOPHEN 325 MG TABLET PO ONE (01:32)
--- NOTE | 2018-01-14 01:38 | ER Document Report ---
ED General - General Chief Complaint: Fall Injury Stated Complaint: FALL Time Seen by Provider: 01/14/18 01:24 Notes: Patient is a 37 year old female with a past medical history of end-stage renal disease with dialysis dependence who presents after having a mechanical fall. Patient states that she slipped and fell in the bathroom striking her face on the ground. She states that she did not lose consciousness, no vomiting, confusion, focal weakness or numbness since the event. She does not take any form of anticoagulation. She notes that since that time she has had a dull, constant throbbing pain to her lips as well as her forehead. Nothing improves or worsens this pain. Denies a history of similar trauma in the past. TRAVEL OUTSIDE OF THE [place] IN LAST 30 DAYS: No - Related Data Allergies/Adverse Reactions: latex [Latex] Allergy (Intermediate, Verified 01/11/18 17:44) Hives tramadol [Tramadol] Allergy (Intermediate, Verified 01/11/18 17:44) Hives ibuprofen Allergy (Verified 01/11/18 17:44) naproxen sodium [From Aleve] Allergy (Verified 01/11/18 17:44) Hives Past Medical History - General Information source: Patient - Social History Smoking Status: Never Smoker Frequency of alcohol use: None Drug Abuse: None Lives with: Spouse/Significant other Family History: Reviewed & Not Pertinent - Past Medical History Cardiac Medical History: Reports: Hx Hypertension Denies: Hx Coronary Artery Disease, Hx Heart Attack Pulmonary Medical History: Denies: Hx Asthma, Hx Bronchitis, Hx COPD, Hx Pneumonia Neurological Medical History: Reports: Hx Seizures. Denies: Hx Cerebrovascular Accident Renal/ Medical History: Reports: Hx End Stage Renal Disease, Hx Hemodialysis. 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, Reports Hx Musculoskeletal Trauma Skin Medical History: Reports Hx Eczema Past Surgical History: Reports: Hx Section, Hx Orthopedic Surgery - bilateral wrist, Hx Thyroid Surgery - x3, Hx Vascular Surgery - Immunizations Immunizations up to date: Yes Hx Diphtheria, Pertussis, Tetanus Vaccination: Yes Review of Systems - Review of Systems Notes: Constitutional: Negative for fever. Eyes: Negative for visual changes. ENT: Positive for facial injury Cardiovascular: Negative for chest injury. Respiratory: Negative for shortness of breath. Gastrointestinal: Negative for abdominal injury. Genitourinary: Negative for genital injury Musculoskeletal: Negative for back injury. Skin: Positive for laceration/abrasions. Neurological: Negative for head injury. Physical Exam - Vital signs Vitals: Temp Pulse Resp BP Pulse Ox 97.9 F 73 18 173/100 H 100 01/14/18 01:18 01/14/18 01:18 01/14/18 01:18 01/14/18 01:18 01/14/18 01:18 Interpretation: Hypertensive Notes: PHYSICAL EXAMINATION: GENERAL: Well-appearing, no acute distress. HEAD: Forehead hematomas bilaterally, normocephalic. EYES: Pupils equal round and reactive to light, extraocular movements intact, sclera anicteric, conjunctiva are normal. ENT: nares patent, swelling of the upper and lower right lip, internal lip laceration on the right lower lip. No hemotympanum, no Avila's sign, no raccoon eyes. NECK: No midline cervical spine tenderness. Patient able to move their head to 45 bilaterally without any discomfort. LUNGS: Breath sounds clear to auscultation bilaterally and equal. No wheezes rales or rhonchi. HEART: Regular rate and rhythm without murmurs. CHEST WALL: No ecchymosis over the chest wall. ABDOMEN: Soft, nontender, normoactive bowel sounds. No guarding, no rebound. No seatbelt sign. EXTREMITIES: Normal range of motion, no pitting or edema. No long bone deformities. BACK: No midline spinal tenderness, step-offs, or deformities. NEUROLOGICAL: Face symmetric. Tongue protrudes midline. Extraocular motions intact. Pupils are 2 mm and equally reactive. Normal speech, normal gait. 5 out of 5 strength in both the distal and proximal upper and lower extremities bilaterally. Sensation is grossly intact throughout. Finger to nose testing normal. Pronator drift normal. PSYCH: Normal mood, normal affect. SKIN: Warm, Dry, normal turgor, scattered ecchymosis over the forehead bilaterally Course - Re-evaluation Re-evalutation: 01/14/18 01:33 Presentation of a well patient in no acute distress, vitals within normal limits after a fall. No focal neurologic deficits on exam, no evidence of basilar skull fracture on exam without evidence of hemotympanum, raccoon eyes, or periauricular hematoma. No papilledema. Patient is not on anticoagulation. GCS is 15. No loss of consciousness. No episodes of vomiting. Patient is therefore negative via [place] head CT criteria and CT imaging will not be obtained at this time. Patient also evaluated by nexus criteria and found to be negative. Patient is also negative by congolese C-spine criteria. Patient does have multiple forehead abrasions as well as lip hematomas to the right upper and lower lip with an internal lip laceration but no external lip laceration that would warrant repair. No clinical evidence to suggest increased risk of cervical spine fracture. No indication for further imaging of the cervical spine. Patient has no focal deformities or limited range of motion in any joint space to indicate need for extremity imaging. Chest and abdominal exam are benign without any focal tenderness, shortness of breath, or bruising over the chest or abdominal wall. Patient has no flank tenderness. There is no obvious findings on trauma exam today and therefore no further imaging or evaluation will be obtained at this time. I've instructed the patient to return to emergency room immediately should they have any worsening or new symptoms that are concerning to them. - Vital Signs Vital signs: Temp Pulse Resp BP Pulse Ox 97.9 F 73 18 173/100 H 100 01/14/18 01:18 01/14/18 01:18 01/14/18 01:18 01/14/18 01:18 01/14/18 01:18 Discharge - Discharge Clinical Impression: Facial trauma Qualifiers: Encounter type: initial encounter Qualified Code(s): S09.93XA - Unspecified injury of face, initial encounter Fall Qualifiers: Encounter type: initial encounter Qualified Code(s): W19.XXXA - Unspecified fall, initial encounter Condition: Good Disposition: HOME, SELF-CARE Additional Instructions: You have been seen in the Emergency Department (ED) today following a fall. Your workup today did not reveal any injuries that require you to stay in the hospital. You can expect, though, to be stiff and sore for the next several days. You can take Tylenol 1000 mg every 6 hours as needed for pain. You can apply a hot pack or electric heating pad to the sore areas. You can also use topical "Aspercreme with lidocaine" to sore areas as needed. Please follow up with your primary care doctor as soon as possible regarding today's ED visit and your recent accident. Call your doctor or return to the ED if you develop a sudden or severe headache , confusion, slurred speech, facial droop, weakness or numbness in any arm or leg, extreme fatigue, vomiting more than two times, severe abdominal pain, or other symptoms that concern you.
== END 2018-01-14 02:14 | disposition home or self-care (01) ==
LOC: ER 01:01
DX: S01.511A Laceration without foreign body of lip, initial encounter (principal); R51 Headache; W01.0XXA Fall on same level from slipping, tripping and stumbling without subsequent striking against object, initial encounter; I12.0 Hypertensive chronic kidney disease with stage 5 chronic kidney disease or end stage renal disease; N18.6 End stage renal disease; Z99.2 Dependence on renal dialysis; Z91.040 Latex allergy status; Z88.5 Allergy status to narcotic agent; Z88.6 Allergy status to analgesic agent
CPT/HCPCS: 99283; A9270 ×2; S0119

== ENCOUNTER 2018-01-18 10:38 | Emergency (ER) | payer MEDICARE, MEDICAID ==
--- NOTE | 2018-01-18 10:56 | ER Document Report ---
ED Medical Screen (RME) - General Chief Complaint: Chemical Burn Stated Complaint: HAND/LEG/SHOULDER PAIN Time Seen by Provider: 01/18/18 10:49 Notes: This 37-year-old female patient comes emergency room complaining of pain to her left shoulder which she states she injured falling off a bed a few days ago. She states that her dog bit into an aerosol can, it sprayed liquid from the can causing armijo to her right thumb and ulnar wrist and left distal leg. She states she was seen here but was not given any medicine for the injuries. Reviewing past medical records shows there is little, if any truth to her story today. She was seen here on 01/11/2018 with the blisters and no knowledge of how they occurred, reporting that she woke up after a seizure and noticed the problem. She was seen here again on 01/14/2018 reporting that she was injured when she slipped and fell in the bathroom. I have greeted and performed a rapid initial assessment of this patient. A comprehensive ED assessment and evaluation of the patient, analysis of test results and completion of the medical decision making process will be conducted by additional ED providers. TRAVEL OUTSIDE OF THE [place] IN LAST 30 DAYS: No - Related Data Allergies/Adverse Reactions: latex [Latex] Allergy (Intermediate, Verified 01/11/18 17:44) Hives tramadol [Tramadol] Allergy (Intermediate, Verified 01/11/18 17:44) Hives ibuprofen Allergy (Verified 01/11/18 17:44) naproxen sodium [From Aleve] Allergy (Verified 01/11/18 17:44) Hives Past Medical History - Past Medical History Cardiac Medical History: Reports: Hx Hypertension Denies: Hx Coronary Artery Disease, Hx Heart Attack Pulmonary Medical History: Denies: Hx Asthma, Hx Bronchitis, Hx COPD, Hx Pneumonia Neurological Medical History: Reports: Hx Seizures. Denies: Hx Cerebrovascular Accident Renal/ Medical History: Reports: Hx End Stage Renal Disease, Hx Hemodialysis. 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, Reports Hx Musculoskeletal Trauma Skin Medical History: Reports Hx Eczema Past Surgical History: Reports: Hx Section, Hx Orthopedic Surgery - bilateral wrist, Hx Thyroid Surgery - x3, Hx Vascular Surgery - Immunizations Immunizations up to date: Yes Hx Diphtheria, Pertussis, Tetanus Vaccination: Yes Physical Exam - Vital signs Vitals: Temp Pulse Resp BP Pulse Ox 98.1 F 88 14 176/111 H 98 01/18/18 10:45 01/18/18 10:45 01/18/18 10:45 01/18/18 10:45 01/18/18 10:45 Course - Vital Signs Vital signs: Temp Pulse Resp BP Pulse Ox 98.1 F 88 14 176/111 H 98 01/18/18 10:45 01/18/18 10:45 01/18/18 10:45 01/18/18 10:45 01/18/18 10:45
[2018-01-18] MEDS ORDERED: BACITRACIN ZINC OINTMENT 15 GM TP ONE (11:24)
--- NOTE | 2018-01-18 11:29 | ER Document Report ---
ED Burn/Smoke/Toxic Fumes - General Chief Complaint: Chemical Burn Stated Complaint: HAND/LEG/SHOULDER PAIN Time Seen by Provider: 01/18/18 10:49 Mode of Arrival: Ambulatory Information source: Patient TRAVEL OUTSIDE OF THE [place] IN LAST 30 DAYS: No - HPI Patient complains to provider of: Burn Notes: Patient is here with complaints of burn to the right hand, left ring finger, bilateral lower extremities and face. Story is quite confusing to understand. Patient tells me that she had an air can used to clean computer keyboards that was bit by her dog. The fluid came out of the can and burned her right thumb hand bilateral legs left face and left ring finger. She states that this happened on the fifth when she was seen here for a seizure although she did not tell them about the aerosol can at that time. At that point she was only noted to have a blister to the right thumb. She was then seen on the eighth after having another seizure and injuring her head and her mouth as well as her shoulder. She states that no x-ray was done at that time. She continues to have left shoulder pain. She is now concerned that her right thumb burn is getting infected and she wanted to have it evaluated. She has not been taking any medications for her burn or pain. She denies any numbness, tingling, weakness. Pain in the left arm is worse with any sort of movement. She is full range of motion of the hand. She denies fever. She denies nausea, vomiting, diarrhea. She denies any other complaints at this time. - Related Data Allergies/Adverse Reactions: latex [Latex] Allergy (Intermediate, Verified 01/11/18 17:44) Hives tramadol [Tramadol] Allergy (Intermediate, Verified 01/11/18 17:44) Hives ibuprofen Allergy (Verified 01/11/18 17:44) naproxen sodium [From Aleve] Allergy (Verified 01/11/18 17:44) Hives Past Medical History - Social History Smoking Status: Former Smoker Frequency of alcohol use: Rare Drug Abuse: None Family History: Reviewed & Not Pertinent Patient has suicidal ideation: No Patient has homicidal ideation: No - Past Medical History Cardiac Medical History: Reports: Hx Hypertension Denies: Hx Coronary Artery Disease, Hx Heart Attack Pulmonary Medical History: Denies: Hx Asthma, Hx Bronchitis, Hx COPD, Hx Pneumonia Neurological Medical History: Reports: Hx Seizures. Denies: Hx Cerebrovascular Accident Renal/ Medical History: Reports: Hx End Stage Renal Disease, Hx Hemodialysis. 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, Reports Hx Musculoskeletal Trauma Skin Medical History: Reports Hx Eczema Past Surgical History: Reports: Hx Section, Hx Orthopedic Surgery - bilateral wrist, Hx Thyroid Surgery - x3, Hx Vascular Surgery - Immunizations Immunizations up to date: Yes Hx Diphtheria, Pertussis, Tetanus Vaccination: Yes Review of Systems - Review of Systems -: Yes All other systems reviewed and negative Physical Exam - Vital signs Vitals: Temp Pulse Resp BP Pulse Ox 98.1 F 88 14 176/111 H 98 01/18/18 10:45 01/18/18 10:45 01/18/18 10:45 01/18/18 10:45 01/18/18 10:45 - Notes Notes: GENERAL: alert, cooperative, nontoxic, no distress. HEAD: normocephalic, atraumatic EYES: conjunctiva pink without discharge, no external redness or swelling. EARS: no external swelling, no external redness NOSE: atraumatic, no external swelling MOUTH/THROAT: mucous membranes moist and pink, posterior pharynx without erythema, swelling, exudate. No trismus or drooling. NECK: soft, supple, full range of motion, no meningismus. CHEST: no distress, lungs clear and equal throughout. No wheezing, rales, rhonchi. CARDIAC: regular rate and rhythm, no murmur, normal capillary refill, normal pulses. No peripheral edema noted. ABDOMEN: Soft, nontender. BACK: full range of motion, no CVA tenderness. EXTREMITIES: Swelling and ecchymosis to the left anterior shoulder with limited range of motion of the left shoulder secondary to pain. Normal pulse and sensation distally. NEURO: alert and oriented x 3, no focal deficits, full range of motion of all extremities. PYSCH: appropriate mood, affect. Patient is cooperative. SKIN: pink, warm, dry, no rash. Patient's got blistered armijo to the top of her right hand and index finger as well as her bilateral inner ankles and the tip of her left ring finger. There is a open burn to the bilateral medial ankles and the thumb. There is some drainage coming from the thumb wound. She has full flexion and extension of the thumb. There is no significant surrounding erythema. Normal pulse and sensation distally. Course - Re-evaluation Re-evalutation: 01/18/18 12:59 Patient is nontoxic appearing with stable vitals. Here with 2 complaints one being a burn and the other being left shoulder pain. The story regarding the burn somewhat confusing and does not completely make sense as the patient tells me that her dog bit I can in the material inside the ear can caused her a burn. She states that this occurred over a week ago. When she was seen a week ago for the blister on her thumb, she was not sure what happened to cause the burn. She now has been using burn to the right thumb with blisters that are currently intact to the dorsum of the right hand the left index finger and a few intact blisters to the medial ankles. There is also 2 open areas to the medial ankles as well. Slight concern for infection in the right thumb. There is no sign of tenosynovitis. She is normal cap refill and sensation. She is afebrile at this time. Patient had her armijo cleaned and had bacitracin dressings applied. She will be discharged home with Keflex, bacitracin and wound care instructions with a referral to surgery for burn care. She is also noted to have a left clavicle fracture. She was placed in a sling for this. She will be given [place] to take as needed for pain. She will referred to orthopedics for follow-up regarding her clavicle fracture. The patient is noted to have elevated blood pressure during today's emergency department visit. The patient was informed of this finding. The patient was instructed that this may be related to pre-hypertension and requires further evaluation with a primary care provider. The patient has no hypertensive symptoms at this time. The patient's emergency department workup and current diagnosis were explained to the patient and or family. Follow-up instructions were provided. Medications if prescribed were discussed. Instructions for when to return to the emergency department including specific worrisome symptoms were discussed with the patient and/or family. - Vital Signs Vital signs: Temp Pulse Resp BP Pulse Ox 98.1 F 88 14 176/111 H 98 01/18/18 10:45 01/18/18 10:45 01/18/18 10:45 01/18/18 10:45 01/18/18 10:45 - Diagnostic Test Radiology reviewed: Image reviewed, Reports reviewed - Left clavicular fracture Procedures - Immobilization left arm Pre-Proc Neuro Vasc Exam: Normal Immobilizer type: Sling Performed by: PCT Post-Proc Neuro Vasc Exam: Normal Alignment checked and good: Yes Discharge - Discharge Clinical Impression: Second degree armijo of multiple sites Closed left clavicular fracture Qualifiers: Encounter type: initial encounter Clavicle location: shaft Fracture alignment: displaced Qualified Code(s): S42.022A - Displaced fracture of shaft of left clavicle, initial encounter for closed fracture Condition: Stable Disposition: HOME, SELF-CARE Instructions: Armijo ([facility]), Soap Cleansing ([facility]), Fractured Clavicle ([facility]) Additional Instructions: Take medications as prescribed. Wear sling and follow-up with orthopedics at the next available appointment. Clean your armijo twice a day with soap and water and apply bacitracin and fresh dressings. Follow-up with surgeons regarding your armijo. Follow-up sooner for increasing pain, fever, redness, persistent vomiting, or for any further concerns. Your blood pressure was elevated during today's visit. Have this rechecked with your doctor. The medication you were prescribed today may cause drowsiness. Do not drive or operate heavy machinery while taking this medication. Forms: Elevated Blood Pressure, Smoking Cessation Education Referrals: MELL TODD MD [Primary Care Provider] - Follow up as needed EDUIN BENAVIDES MD [ACTIVE STAFF] - Follow up as needed YONG OCASIO MD [[facility]] - Follow up as needed
[2018-01-18] MEDS ORDERED: HYDROCODONE/ACETAMINOPHEN 5-325 MG TABLET PO ONE (11:45)
--- NOTE | 2018-01-18 11:58 | RADIOLOGY REPORT (SQ) ---
EXAM DESCRIPTION: SHOULDER LEFT 2 OR MORE VIEWS COMPLETED DATE/TIME: 01/18/2018 11:44 am REASON FOR STUDY: injury COMPARISON: None. NUMBER OF VIEWS: Three views. TECHNIQUE: Internal rotation, external rotation, and Y view images acquired of the left shoulder. LIMITATIONS: None. FINDINGS: MINERALIZATION: Normal. BONES: A fracture of the mid clavicle is identified with some overriding of the fracture fragments. No other evidence for fracture is seen. JOINTS: No dislocation. VISUALIZED LUNGS AND RIBS: No pneumothorax. No rib fracture. SOFT TISSUES: No radiopaque foreign body. OTHER: No other significant finding. IMPRESSION: Fracture of the mid clavicle. No other evidence for fracture or dislocation is seen. TECHNICAL DOCUMENTATION: JOB ID: [id number] [employer]- All Rights Reserved Reading location - IP/workstation name: [email or web address]
[2018-01-18 13:29] VITALS: BP 172/100
== END 2018-01-18 13:29 | disposition home or self-care (01) ==
LOC: ER 10:38
DX: S42.022A Displaced fracture of shaft of left clavicle, initial encounter for closed fracture (principal); T23.601A Corrosion of second degree of right hand, unspecified site, initial encounter; T23.622A Corrosion of second degree of single left finger (nail) except thumb, initial encounter; T24.602A Corrosion of second degree of unspecified site of left lower limb, except ankle and foot, initial encounter; T24.601A Corrosion of second degree of unspecified site of right lower limb, except ankle and foot, initial encounter; T20.60XA Corrosion of second degree of head, face, and neck, unspecified site, initial encounter; T65.891A Toxic effect of other specified substances, accidental (unintentional), initial encounter; M25.512 Pain in left shoulder; X58.XXXA Exposure to other specified factors, initial encounter; Z87.891 Personal history of nicotine dependence; I10 Essential (primary) hypertension; J44.9 Chronic obstructive pulmonary disease, unspecified
CPT/HCPCS: 99283; 73030; A9270; J3490

== ENCOUNTER 2018-01-20 22:32 | Emergency (ER) | payer MEDICARE, MEDICAID ==
[2018-01-20] MEDS ORDERED: LIDOCAINE 5% (700 MG) TRANSDERMAL ADH..PATCH TP ONE (23:33)
[2018-01-20] MEDS ORDERED: DIAZEPAM 5 MG TABLET PO ONE (23:33)
[2018-01-20] MEDS ORDERED: ACETAMINOPHEN 325 MG TABLET PO ONE (23:33)
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
--- NOTE | 2018-01-20 23:59 | RADIOLOGY REPORT (SQ) ---
EXAM DESCRIPTION: CHEST SINGLE VIEW CLINICAL HISTORY: 37 years Female, sob COMPARISON: None. NUMBER OF VIEWS/TECHNIQUE: 1/AP LIMITATIONS: None. FINDINGS: No pneumothorax. No acute bone defect. IMPRESSION: No significant change.
--- NOTE | 2018-01-21 08:21 | EKG REPORT ---
SEVERITY:- BORDERLINE ECG - SINUS RHYTHM PROBABLE LEFT ATRIAL ABNORMALITY BORDERLINE PROLONGED QT INTERVAL : Confirmed by: Danny Nick MD 21-Jan-2018 08:20:53
== END 2018-01-21 01:15 | disposition home or self-care (01) ==
LOC: ER 22:32
DX: R52 Pain, unspecified (principal); M79.89 Other specified soft tissue disorders; T24.201A Burn of second degree of unspecified site of right lower limb, except ankle and foot, initial encounter; T24.202A Burn of second degree of unspecified site of left lower limb, except ankle and foot, initial encounter; T23.201A Burn of second degree of right hand, unspecified site, initial encounter; X08.8XXD Exposure to other specified smoke, fire and flames, subsequent encounter; S42.002D Fracture of unspecified part of left clavicle, subsequent encounter for fracture with routine healing; N18.6 End stage renal disease
CPT/HCPCS: 93005; 99285; 71045; 93010; A9270 ×2

== ENCOUNTER 2018-02-08 00:36 | Emergency (ER) | payer MEDICARE, MEDICAID ==
[2018-02-08 01:06] VITALS: BP 169/94
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
--- NOTE | 2018-02-08 02:40 | RADIOLOGY REPORT (SQ) ---
EXAM DESCRIPTION: SHOULDER LEFT 2 OR MORE VIEWS CLINICAL HISTORY: previous clav fx, recent fall COMPARISON: 01/18/2018 FINDINGS: 3 views of the left shoulder. Unchanged appearance of mid left clavicular fracture with apposition and approximately 1.5 cm of inferior displacement of the distal fracture fragment. Widening of the acromioclavicular joint is stable. Normal osseous mineralization. No left-sided rib fracture. No new fractures identified. No new dislocation identified. Postoperative change in the left axillary region. IMPRESSION: 1. No new fracture identified. 2. Mid left clavicular fracture is unchanged in configuration.
== END 2018-02-08 03:15 | disposition home or self-care (01) ==
LOC: ER 00:36
DX: M25.512 Pain in left shoulder (principal); R07.9 Chest pain, unspecified; F17.200 Nicotine dependence, unspecified, uncomplicated; I12.0 Hypertensive chronic kidney disease with stage 5 chronic kidney disease or end stage renal disease; N18.6 End stage renal disease; Z99.2 Dependence on renal dialysis
CPT/HCPCS: 99283

== ENCOUNTER 2018-02-10 18:41 | Emergency (ER) | payer MEDICARE, MEDICAID ==
--- NOTE | 2018-02-10 19:15 | ER Document Report ---
ED Medical Screen (RME) - General Chief Complaint: Breathing Difficulty Stated Complaint: DIFFICULTY BREATHING Time Seen by Provider: 02/10/18 19:09 Notes: This 37-year-old female patient reports inhaling and air duster shortly before arrival. She saw it reported on TV and how people are using these aerosol cans to get high and how stupid this is, so she decided she would try it. She now complains of shortness of breath, nausea, and feeling anxious. I have greeted and performed a rapid initial assessment of this patient. A comprehensive ED assessment and evaluation of the patient, analysis of test results and completion of the medical decision making process will be conducted by additional ED providers. TRAVEL OUTSIDE OF THE [place] IN LAST 30 DAYS: No - Related Data Allergies/Adverse Reactions: latex [Latex] Allergy (Intermediate, Verified 02/10/18 19:06) Hives tramadol [Tramadol] Allergy (Intermediate, Verified 02/10/18 19:06) Hives ibuprofen Allergy (Verified 02/10/18 19:06) naproxen sodium [From Aleve] Allergy (Verified 02/10/18 19:06) Hives Past Medical History - Social History Chew tobacco use (# tins/day): No Frequency of alcohol use: None Drug Abuse: None - Past Medical History Cardiac Medical History: Reports: Hx Hypertension Denies: Hx Coronary Artery Disease, Hx Heart Attack Pulmonary Medical History: Denies: Hx Asthma, Hx Bronchitis, Hx COPD, Hx Pneumonia Neurological Medical History: Reports: Hx Seizures. Denies: Hx Cerebrovascular Accident Renal/ Medical History: Reports: Hx End Stage Renal Disease, Hx Hemodialysis. 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, Reports Hx Musculoskeletal Trauma Skin Medical History: Reports Hx Eczema Past Surgical History: Reports: Hx Section, Hx Orthopedic Surgery - bilateral wrist, Hx Thyroid Surgery - x3, Hx Vascular Surgery - Immunizations Immunizations up to date: Yes Hx Diphtheria, Pertussis, Tetanus Vaccination: Yes Physical Exam - Vital signs Vitals: Temp Pulse Resp BP Pulse Ox 98.5 F 85 18 162/108 H 99 02/10/18 18:48 02/10/18 18:48 02/10/18 18:48 02/10/18 18:48 02/10/18 18:48 Course - Vital Signs Vital signs: Temp Pulse Resp BP Pulse Ox 98.5 F 85 18 162/108 H 99 02/10/18 18:48 02/10/18 18:48 02/10/18 18:48 02/10/18 18:48 02/10/18 18:48
--- NOTE | 2018-02-10 19:30 | ER Document Report ---
ED General - General Chief Complaint: Breathing Difficulty Stated Complaint: DIFFICULTY BREATHING Time Seen by Provider: 02/10/18 19:09 TRAVEL OUTSIDE OF THE [place] IN LAST 30 DAYS: No - Related Data Allergies/Adverse Reactions: latex [Latex] Allergy (Intermediate, Verified 02/10/18 19:06) Hives tramadol [Tramadol] Allergy (Intermediate, Verified 02/10/18 19:06) Hives ibuprofen Allergy (Verified 02/10/18 19:06) naproxen sodium [From Aleve] Allergy (Verified 02/10/18 19:06) Hives Past Medical History - Social History Smoking Status: Never Smoker Chew tobacco use (# tins/day): No Frequency of alcohol use: None Drug Abuse: None Family History: Reviewed & Not Pertinent Patient has suicidal ideation: No Patient has homicidal ideation: No - Past Medical History Cardiac Medical History: Reports: Hx Hypertension Denies: Hx Coronary Artery Disease, Hx Heart Attack Pulmonary Medical History: Denies: Hx Asthma, Hx Bronchitis, Hx COPD, Hx Pneumonia Neurological Medical History: Reports: Hx Seizures. Denies: Hx Cerebrovascular Accident Renal/ Medical History: Reports: Hx End Stage Renal Disease, Hx Hemodialysis. 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, Reports Hx Musculoskeletal Trauma Skin Medical History: Reports Hx Eczema Past Surgical History: Reports: Hx Section, Hx Orthopedic Surgery - bilateral wrist, Hx Thyroid Surgery - x3, Hx Vascular Surgery - Immunizations Immunizations up to date: Yes Hx Diphtheria, Pertussis, Tetanus Vaccination: Yes Physical Exam - Vital signs Vitals: Temp Pulse Resp BP Pulse Ox 98.5 F 85 18 162/108 H 99 02/10/18 18:48 02/10/18 18:48 02/10/18 18:48 02/10/18 18:48 02/10/18 18:48 Course - Vital Signs Vital signs: Temp Pulse Resp BP Pulse Ox 98.5 F 85 18 162/108 H 99 02/10/18 18:48 02/10/18 18:48 02/10/18 18:48 02/10/18 18:48 02/10/18 18:48
[2018-02-10] MEDS ORDERED: LEVETIRACETAM 500 MG TABLET PO ONE (20:14)
[2018-02-10] MEDS ORDERED: ACETAMINOPHEN 325 MG TABLET PO ONE (20:16)
--- NOTE | 2018-02-10 20:16 | ER Document Report ---
ED Medical Screen (RME) - General Chief Complaint: Breathing Difficulty Stated Complaint: seizure Time Seen by Provider: 02/10/18 19:09 TRAVEL OUTSIDE OF THE [place] IN LAST 30 DAYS: No - HPI Notes: 02/10/18 20:09 37-year-old female who is on dialysis with a seizure disorder presents to the ER after she inhaled aerosolized duster from the canister to get high, states she felt weird, had a seizure where she hit her head. There is a contusion on her left occipital area, states she feels "weird". Patient has multiple contusions and arimjo throughout her body, states this is from when her dog bit the aerosolized duster canister and it "exploded" and this is what caused her heartburn though she only admitted to using the aerosolized duster to get high once today. Patient does not remember hitting her head, states her head pain is 8 out of 10, throbbing achy. Poison Control already contacted. I have greeted and performed a rapid initial assessment of this patient. A comprehensive ED assessment and evaluation of the patient, analysis of test results and completion of medical decision making process will be conducted by an additional ED providers. 02/10/18 20:17 - Related Data Allergies/Adverse Reactions: latex [Latex] Allergy (Intermediate, Verified 02/10/18 19:06) Hives tramadol [Tramadol] Allergy (Intermediate, Verified 02/10/18 19:06) Hives ibuprofen Allergy (Verified 02/10/18 19:06) naproxen sodium [From Aleve] Allergy (Verified 02/10/18 19:06) Hives Past Medical History - Social History Chew tobacco use (# tins/day): No Frequency of alcohol use: None Drug Abuse: None - Past Medical History Cardiac Medical History: Reports: Hx Hypertension Denies: Hx Coronary Artery Disease, Hx Heart Attack Pulmonary Medical History: Denies: Hx Asthma, Hx Bronchitis, Hx COPD, Hx Pneumonia Neurological Medical History: Reports: Hx Seizures. Denies: Hx Cerebrovascular Accident Renal/ Medical History: Reports: Hx End Stage Renal Disease, Hx Hemodialysis. 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, Reports Hx Musculoskeletal Trauma Skin Medical History: Reports Hx Eczema Past Surgical History: Reports: Hx Section, Hx Orthopedic Surgery - bilateral wrist, Hx Thyroid Surgery - x3, Hx Vascular Surgery - Immunizations Immunizations up to date: Yes Hx Diphtheria, Pertussis, Tetanus Vaccination: Yes Physical Exam - Vital signs Vitals: Temp Pulse Resp BP Pulse Ox 98.5 F 85 18 162/108 H 99 02/10/18 18:48 02/10/18 18:48 02/10/18 18:48 02/10/18 18:48 02/10/18 18:48 - Skin Notes: Multiple contusions throughout body at different intervals of healing stages along with armijo Course - Vital Signs Vital signs: Temp Pulse Resp BP Pulse Ox 98.5 F 85 18 162/108 H 99 02/10/18 18:48 02/10/18 18:48 02/10/18 18:48 02/10/18 18:48 02/10/18 18:48 Doctor's Discharge - Discharge Referrals: MELL TODD MD [Primary Care Provider] - Follow up as needed
--- NOTE | 2018-02-10 20:25 | EKG REPORT ---
SEVERITY:- BORDERLINE ECG - SINUS RHYTHM PROBABLE LEFT ATRIAL ABNORMALITY BORDERLINE PROLONGED QT INTERVAL : Confirmed by: Jennifer Hill 10-Feb-2018 20:23:49
[2018-02-10 21:03] LABS: INTERNATIONAL RATION (INR) 1.11; PROTHROMBIN TIME 14.8 SEC (11.4-15.4)
[2018-02-10 21:04] LABS: PARTIAL THROMBOPLASTIN TIME 37.2 SEC (23.5-35.8)
--- NOTE | 2018-02-10 21:07 | RADIOLOGY REPORT (SQ) ---
EXAM DESCRIPTION: CT HEAD WITHOUT COMPLETED DATE/TIME: 02/10/2018 8:57 pm REASON FOR STUDY: seizure s/p inhaling aerosolized med to get high COMPARISON: None. TECHNIQUE: Axial images acquired through the brain without intravenous contrast. Images reviewed wi th bone, brain and subdural windows. Images stored on PACS. All CT scanners at this facility use dose modulation, iterative reconstruction, and/or weight based d osing when appropriate to reduce radiation dose to as low as reasonably achievable (ALARA). [facility]: Dose Right [facility]: CareDose [facility]: Dose Right [facility]: Teradose 4D [facility]: Smart [employer] RADIATION DOSE: CT Rad equipment meets quality standard of care and radiation dose reduction techniq ues were employed. CTDIvol: 53.2 mGy. DLP: 1044 mGy-cm. mGy. LIMITATIONS: None. FINDINGS: VENTRICLES: Normal size and contour. CEREBRUM: No masses. No hemorrhage. No midline shift. No evidence for acute infarction. Normal gra y/white matter differentiation. No areas of low density in the white matter. CEREBELLUM: No masses. No hemorrhage. No alteration of density. No evidence for acute infarction. EXTRAAXIAL SPACES: No fluid collections. No masses. ORBITS AND GLOBE: No intra- or extraconal masses. Normal contour of globe without masses. CALVARIUM: No fracture. PARANASAL SINUSES: No fluid or mucosal thickening. SOFT TISSUES: No mass or hematoma. OTHER: No other significant finding. IMPRESSION: NORMAL BRAIN CT WITHOUT CONTRAST. EVIDENCE OF ACUTE STROKE: NO. COMMENT: Quality ID # [id number]: Final reports with documentation of one or more dose reduction techniques (e.g., Automated exposure control, adjustment of the mA and/or kV according to patient size, use of iterative reconstruction technique) TECHNICAL DOCUMENTATION: JOB ID: [id number] [employer]- All Rights Reserved Reading location - IP/workstation name: [email or web address]
[2018-02-10 21:11] LABS: ALANINE AMINOTRANSFERASE 30 U/L (9-52); ALBUMIN 3.5 g/dL (3.5-5.0); ALKALINE PHOSPHATASE 120 U/L (38-126); ANION GAP 17 (5-19); ASPARTATE AMINO TRANSFERASE 29 U/L (14-36); BILIRUBIN,DIRECT 0.4 mg/dL (0.0-0.4); BILIRUBIN,TOTAL 0.4 mg/dL (0.2-1.3); BLOOD UREA NITROGEN 35 mg/dL (7-20); CALCIUM 7.2 mg/dL (8.4-10.2); CARBON DIOXIDE 23 mmol/L (22-30); CHLORIDE 101 mmol/L (98-107); CREATINE KINASE 942 U/L (30-135); GLUCOSE 97 mg/dL (75-110); POTASSIUM 4.5 mmol/L (3.6-5.0); TOTAL PROTEIN 5.8 g/dL (6.3-8.2)
--- NOTE | 2018-02-10 21:11 | RADIOLOGY REPORT (SQ) ---
EXAM DESCRIPTION: CHEST 2 VIEWS COMPLETED DATE/TIME: 02/10/2018 9:04 pm REASON FOR STUDY: sob COMPARISON: 07/27/2017 EXAM PARAMETERS: NUMBER OF VIEWS: two views TECHNIQUE: Digital Frontal and Lateral radiographic views of the chest acquired. RADIATION DOSE: NA LIMITATIONS: none FINDINGS: LUNGS AND PLEURA: No opacities, masses or pneumothorax. No pleural effusion. MEDIASTINUM AND HILAR STRUCTURES: No masses or contour abnormalities. HEART AND VASCULAR STRUCTURES: Heart normal size. No evidence for failure. BONES: No acute findings. HARDWARE: None in the chest. OTHER: No other significant finding. IMPRESSION: NO ACUTE RADIOGRAPHIC FINDING IN THE CHEST. TECHNICAL DOCUMENTATION: JOB ID: [id number]- All Rights Reserved Reading location - IP/workstation name: [email or web address]
[2018-02-10 21:16] LABS: ABSOLUTE BASOPHILS # (AUTO) 0.1 10^3/uL (0.0-0.2); ABSOLUTE EOSINOPHILS # (AUTO) 0.2 10^3/uL (0.0-0.6); ABSOLUTE LYMPHOCYTES (AUTO) 0.8 10^3/uL (0.5-4.7); ABSOLUTE MONOCYTES (AUTO) 0.9 10^3/uL (0.1-1.4); ABSOLUTE NEUT (AUTO) 7.4 10^3/uL (1.7-8.2); EOSINOPHILS % (AUTO) 1.8 % (0-6); HEMATOCRIT 26.6 % (36.0-47.0); MEAN CORPUSCULAR HEMOGLOBIN 32.5 pg (27.0-33.4); MEAN CORPUSCULAR HGB CONC 33.9 g/dL (32.0-36.0); MEAN CORPUSCULAR VOLUME 96 fl (80-97); MONOCYTES % (AUTO) 9.4 % (3-13); PLATELET COUNT 247 10^3/uL (150-450); RED BLOOD COUNT 2.77 10^6/uL (3.72-5.28); RED CELL DISTRIBUTION WIDTH 14.2 % (11.5-14.0); SEGMENTED NEUTROPHILS % (AUTO) 78.8 % (42-78); TOTAL CELLS COUNTED % (AUTO) 100 %; WHITE BLOOD COUNT 9.4 10^3/uL (4.0-10.5)
[2018-02-10 21:19] LABS: ACETAMINOPHEN < 10 ug/mL (10-30); ALCOHOL < 10 mg/dL (NONE DETECTED); SALICYLATE < 1.0 mg/dL (2.0-20.0)
[2018-02-10 21:35] LABS: CREATINE KINASE MB 1.78 ng/mL (<4.55)
[2018-02-10 21:44] LABS: TROPONIN I 0.037 ng/mL
--- NOTE | 2018-02-10 22:54 | ER Document Report ---
ED General - General Chief Complaint: Breathing Difficulty Stated Complaint: DIFFICULTY BREATHING Time Seen by Provider: 02/10/18 19:09 Information source: Patient, Relative Notes: Patient presents after huffing "dust off" spray (whippits per pt). Patient states that she inhaled the chemical around 3 PM and use the entire can. Patient states that she felt dazed initially after using the inhaler. Patient states that while at home she got dizzy and fell hitting her lateral side. Patient states she had some nausea and vomiting at home. Patient states that she missed dialysis yesterday and also did not take any of her seizure medication today. Patient states that she did have a seizure while in her car which prompted her to bring her here for evaluation. TRAVEL OUTSIDE OF THE [place] IN LAST 30 DAYS: No - HPI Onset: This afternoon Onset/Duration: Sudden Quality of pain: Achy Associated symptoms: Diarrhea, Nausea, Vomiting, Other - Initial dazed sensation. denies: Chest pain, Nonproductive cough, Productive cough, Headache Exacerbated by: Denies Relieved by: Denies Similar symptoms previously: No Recently seen / treated by doctor: No - Related Data Allergies/Adverse Reactions: latex [Latex] Allergy (Intermediate, Verified 02/10/18 19:06) Hives tramadol [Tramadol] Allergy (Intermediate, Verified 02/10/18 19:06) Hives ibuprofen Allergy (Verified 02/10/18 19:06) naproxen sodium [From Aleve] Allergy (Verified 02/10/18 19:06) Hives Past Medical History - General Information source: Patient, Relative - Social History Smoking Status: Never Smoker Chew tobacco use (# tins/day): No Frequency of alcohol use: None Drug Abuse: Other - chemical inhalant Occupation: none Lives with: Spouse/Significant other Family History: Reviewed & Not Pertinent Patient has suicidal ideation: No Patient has homicidal ideation: No - Past Medical History Cardiac Medical History: Reports: Hx Hypertension Denies: Hx Coronary Artery Disease, Hx Heart Attack Pulmonary Medical History: Denies: Hx Asthma, Hx Bronchitis, Hx COPD, Hx Pneumonia Neurological Medical History: Reports: Hx Seizures. Denies: Hx Cerebrovascular Accident Renal/ Medical History: Reports: Hx End Stage Renal Disease, Hx Hemodialysis. 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, Reports Hx Musculoskeletal Trauma Skin Medical History: Reports Hx Eczema Past Surgical History: Reports: Hx Section, Hx Orthopedic Surgery - bilateral wrist, Hx Thyroid Surgery - x3, Hx Vascular Surgery - Immunizations Immunizations up to date: Yes Hx Diphtheria, Pertussis, Tetanus Vaccination: Yes Review of Systems - Review of Systems Constitutional: No symptoms reported. denies: Fever, Recent illness EENT: No symptoms reported Cardiovascular: Dizziness, Lightheaded Respiratory: No symptoms reported. denies: Cough, Short of breath Gastrointestinal: Diarrhea, Nausea, Vomiting. denies: Abdominal pain Genitourinary: No symptoms reported Female Genitourinary: No symptoms reported Musculoskeletal: No symptoms reported. denies: Back pain, Neck pain Skin: Other - bruises to extremities, healed armijo to extremities Hematologic/Lymphatic: Easy bruising Neurological/Psychological: No symptoms reported Physical Exam - Vital signs Vitals: Temp Pulse Resp BP Pulse Ox 98.5 F 85 18 162/108 H 99 02/10/18 18:48 02/10/18 18:48 02/10/18 18:48 02/10/18 18:48 02/10/18 18:48 - General General appearance: Appears well, Alert In distress: None - HEENT Head: Normocephalic, Atraumatic Eyes: Normal Conjunctiva: Normal Ears: Normal External canal: Normal Nasal: Normal Mouth/Lips: Normal Pharynx: Normal. No: Erythema, Exudate Neck: Normal, Supple. No: Lymphadenopathy - Respiratory Respiratory status: No respiratory distress Chest status: Nontender Breath sounds: Normal. No: Rales, Rhonchi, Stridor, Wheezing Chest palpation: Normal - Cardiovascular Rhythm: Regular Heart sounds: S1 appreciated, S2 appreciated Murmur: No - Abdominal Inspection: Normal Distension: No distension Bowel sounds: Normal Tenderness: Nontender - Back Back: Tender - Left lateral side tenderness just superior of left iliac crest. No: Vertebra tenderness - Extremities General upper extremity: Normal strength General lower extremity: Normal strength - Neurological Neuro grossly intact: Yes Cognition: Normal Marci Coma Scale Eye Opening: Spontaneous Marci Coma Scale Verbal: Oriented [place] Coma Scale Motor: Obeys Commands [place] Coma Scale Total: 15 - Psychological Associated symptoms: Normal affect, Normal mood - Skin Skin Temperature: Warm Skin Moisture: Dry Skin Color: Ecchymosis - Multiple ecchymotic areas to bilateral upper extremities, left hip area just superior iliac crest, Other - Patient with healed burn to right hand, patient with scabbed lesions to bilateral lower extremities consistent with patient's reported history of armijo to this area, patient with blistered burn to anterior chest area measuring 2 cm diameter. Course - Re-evaluation Re-evalutation: 02/10/18 22:53 Consulted with poison control, reviewed patient's current vital signs as well as diagnostic test results. They do not recommend any additional testing or monitoring per their protocol after recent inhalant exposure. Patient sleeping , arouses easily to voice. Patient denies any complaints at this time. 02/10/18 22:[address] Olivia regarding patient presentation and physical exam findings. Discussed conversation with the poison control as well as the fact that patient missed her dialysis yesterday. Does not recommend any additional testing at this time advises follow-up with her primary doctor and getting dialysis as recommended. Patient denies any complaints or symptoms at this time. Patient awake alert and oriented. Patient encouraged to avoid use of inhalants spray in the future. Patient also strongly encouraged to be compliant with her seizure medication as well as dialysis. 02/11/18 02:19 - Vital Signs Vital signs: Temp Pulse Resp BP Pulse Ox 98.5 F 85 22 H 173/98 H 95 02/10/18 18:48 02/10/18 18:48 02/10/18 23:31 02/10/18 23:31 02/10/18 23:31 - Laboratory Result Diagrams: 02/10/18 20:40 02/10/18 20:40 Laboratory results interpreted by me: 02/10/18 02/10/18 02/10/18 20:40 20:40 20:40 RBC 2.77 L Hgb 9.0 L Hct 26.6 L RDW 14.2 H Seg Neutrophils % 78.8 H Lymphocytes % 9.0 L APTT 37.2 H BUN 35 H Creatinine 13.52 H Est GFR ( Amer) 4 L Est GFR (Non-Af Amer) 3 L Calcium 7.2 L Creatine Kinase 942 H Total Protein 5.8 L Salicylates < 1.0 L Acetaminophen < 10 L 02/10/18 22:58 Labs- Entire Visit 02/10/18 02/10/18 02/10/18 20:40 20:40 20:40 WBC 9.4 RBC 2.77 L Hgb 9.0 L Hct 26.6 L MCV 96 MCH 32.5 MCHC 33.9 RDW 14.2 H Plt Count 247 Seg Neutrophils % 78.8 H Lymphocytes % 9.0 L Monocytes % 9.4 Eosinophils % 1.8 Basophils % 1.0 Absolute Neutrophils 7.4 Absolute Lymphocytes 0.8 Absolute Monocytes 0.9 Absolute Eosinophils 0.2 Absolute Basophils 0.1 PT INR APTT Sodium 141.0 Potassium 4.5 Chloride 101 Carbon Dioxide 23 Anion Gap 17 BUN 35 H Creatinine 13.52 H Est GFR ( Amer) 4 L Est GFR (Non-Af Amer) 3 L Glucose 97 Calcium 7.2 L Total Bilirubin 0.4 Direct Bilirubin 0.4 Neonat Total Bilirubin Not Reportable Neonat Direct Bilirubin Not Reportable Neonat Indirect Bili Not Reportable AST 29 ALT 30 Alkaline Phosphatase 120 Creatine Kinase 942 H CK-MB (CK-2) 1.78 Troponin I 0.037 Total Protein 5.8 L Albumin 3.5 Salicylates < 1.0 L Acetaminophen < 10 L Serum Alcohol < 10 02/10/18 20:40 WBC RBC Hgb Hct MCV MCH MCHC RDW Plt Count Seg Neutrophils % Lymphocytes % Monocytes % Eosinophils % Basophils % Absolute Neutrophils Absolute Lymphocytes Absolute Monocytes Absolute Eosinophils Absolute Basophils PT 14.8 INR 1.11 APTT 37.2 H Sodium Potassium Chloride Carbon Dioxide Anion Gap BUN Creatinine Est GFR ( Amer) Est GFR (Non-Af Amer) Glucose Calcium Total Bilirubin Direct Bilirubin Neonat Total Bilirubin Neonat Direct Bilirubin Neonat Indirect Bili AST ALT Alkaline Phosphatase Creatine Kinase CK-MB (CK-2) Troponin I Total Protein Albumin Salicylates Acetaminophen Serum Alcohol - Diagnostic Test Radiology reviewed: Reports reviewed - EKG Interpretation by Me EKG shows normal: Sinus rhythm Rate: Normal When compared to previous EKG there are: No significant change Discharge - Discharge Clinical Impression: Inhalant abuse, Seizure, Burn of skin, History of chronic renal failure Condition: Stable Disposition: HOME, SELF-CARE Instructions: Armijo ([facility]), Seizure, Known Epileptic ([facility]), Silvadene Cream ([facility] ) Additional Instructions: Return immediately for any new or worsening symptoms Followup with your primary care provider, call tomorrow to make a followup appointment It is important that you get dialysis as directed. If you fail to get dialysis you risk your life in doing so. Call your dialysis center to arrange dialysis in a timely manner. Do not use recreational drugs. Keep burn covered with a dressing until it is healed. Take your seizure medication as prescribed. Referrals: MELL TODD MD [Primary Care Provider] - Follow up tomorrow
[2018-02-10] MEDS ORDERED: SILVER SULFADIAZINE 1% CREAM 25 GM TP ONE (23:00)
[2018-02-11 00:05] VITALS: BP 173/98
== END 2018-02-11 00:05 | disposition home or self-care (01) ==
LOC: ER 18:41
DX: F18.10 Inhalant abuse, uncomplicated (principal); R56.9 Unspecified convulsions; R06.9 Unspecified abnormalities of breathing; T21.01XA Burn of unspecified degree of chest wall, initial encounter; X08.8XXA Exposure to other specified smoke, fire and flames, initial encounter; W19.XXXA Unspecified fall, initial encounter; I12.0 Hypertensive chronic kidney disease with stage 5 chronic kidney disease or end stage renal disease; N18.6 End stage renal disease; Z99.2 Dependence on renal dialysis; R42 Dizziness and giddiness; R11.2 Nausea with vomiting, unspecified; R19.7 Diarrhea, unspecified; Z79.899 Other long term (current) drug therapy
CPT/HCPCS: 93005; 99285; 36415; 80177; 82553; 80307 ×3; 82550; 85025; 85610; 85730; 80053; 84484; 71046; 70450; 93010; A9270 ×3

== ENCOUNTER 2018-02-16 11:40 | Emergency (ER) | payer MEDICARE, MEDICAID ==
--- NOTE | 2018-02-16 12:41 | ER Document Report ---
ED Medical Screen (RME) - General Chief Complaint: Abdominal Pain Stated Complaint: ABDOMINAL PAIN Time Seen by Provider: 02/16/18 12:24 TRAVEL OUTSIDE OF THE [place] IN LAST 30 DAYS: No - HPI Notes: 02/16/18 12:37 Pt. c/o crampy abdominal pain with watery yellow stool since Monday. Had hemodialysis (on HD since age [age]) this am then went to [facility] to have left clavicular fx repaired. Had abdominal pain, diarrhea, and diaphoresis and was sent here for evaluation. 12:40 Pt. now bent over on floor, screaming in pain. 02/16/18 12:41 - Related Data Allergies/Adverse Reactions: latex [Latex] Allergy (Intermediate, Verified 02/16/18 11:41) Hives tramadol [Tramadol] Allergy (Intermediate, Verified 02/16/18 11:41) Hives ibuprofen Allergy (Verified 02/16/18 11:41) naproxen sodium [From Aleve] Allergy (Verified 02/16/18 11:41) Hives Past Medical History - Social History Chew tobacco use (# tins/day): No Frequency of alcohol use: None Drug Abuse: None - Past Medical History Cardiac Medical History: Reports: Hx Hypertension Denies: Hx Coronary Artery Disease, Hx Heart Attack Pulmonary Medical History: Denies: Hx Asthma, Hx Bronchitis, Hx COPD, Hx Pneumonia Neurological Medical History: Reports: Hx Seizures. Denies: Hx Cerebrovascular Accident Renal/ Medical History: Reports: Hx End Stage Renal Disease, Hx Hemodialysis, Hx Peritoneal Dialysis Musculoskeltal Medical History: Denies Hx Arthritis, Reports Hx Musculoskeletal Deformity - Nerve damage to left hand, Reports Hx Musculoskeletal Trauma Skin Medical History: Reports Hx Eczema Past Surgical History: Reports: Hx Section, Hx Orthopedic Surgery - bilateral wrist, Hx Thyroid Surgery - x3, Hx Vascular Surgery - Immunizations Immunizations up to date: Yes Hx Diphtheria, Pertussis, Tetanus Vaccination: Yes Physical Exam - Vital signs Vitals: Temp Pulse Resp BP Pulse Ox 98.3 F 73 16 157/99 H 97 02/16/18 11:47 02/16/18 11:47 02/16/18 11:47 02/16/18 11:47 02/16/18 11:47 Course - Vital Signs Vital signs: Temp Pulse Resp BP Pulse Ox 98.3 F 73 16 157/99 H 97 02/16/18 11:47 02/16/18 11:47 02/16/18 11:47 02/16/18 11:47 02/16/18 11:47 Doctor's Discharge - Discharge Referrals: MELL TODD MD [Primary Care Provider] - Follow up as needed
[2018-02-16 13:39] LABS: ABSOLUTE BASOPHILS # (AUTO) 0.1 10^3/uL (0.0-0.2); ABSOLUTE EOSINOPHILS # (AUTO) 0.2 10^3/uL (0.0-0.6); ABSOLUTE LYMPHOCYTES (AUTO) 0.7 10^3/uL (0.5-4.7); ABSOLUTE MONOCYTES (AUTO) 0.4 10^3/uL (0.1-1.4); ABSOLUTE NEUT (AUTO) 4.4 10^3/uL (1.7-8.2); EOSINOPHILS % (AUTO) 3.2 % (0-6); HEMATOCRIT 28.6 % (36.0-47.0); HEMOGLOBIN 9.7 g/dL (12.0-15.5); MEAN CORPUSCULAR HEMOGLOBIN 32.6 pg (27.0-33.4); MEAN CORPUSCULAR HGB CONC 33.9 g/dL (32.0-36.0); MEAN CORPUSCULAR VOLUME 96 fl (80-97); MONOCYTES % (AUTO) 6.5 % (3-13); PLATELET COUNT 291 10^3/uL (150-450); RED BLOOD COUNT 2.98 10^6/uL (3.72-5.28); RED CELL DISTRIBUTION WIDTH 14.2 % (11.5-14.0); SEGMENTED NEUTROPHILS % (AUTO) 77.3 % (42-78); TOTAL CELLS COUNTED % (AUTO) 100 %; WHITE BLOOD COUNT 5.7 10^3/uL (4.0-10.5)
[2018-02-16 14:00] LABS: ALANINE AMINOTRANSFERASE 17 U/L (9-52); ALBUMIN 3.6 g/dL (3.5-5.0); ALKALINE PHOSPHATASE 147 U/L (38-126); ANION GAP 10 (5-19); ASPARTATE AMINO TRANSFERASE 18 U/L (14-36); BILIRUBIN,DIRECT 0.4 mg/dL (0.0-0.4); BILIRUBIN,TOTAL 0.4 mg/dL (0.2-1.3); BLOOD UREA NITROGEN 15 mg/dL (7-20); CALCIUM 8.5 mg/dL (8.4-10.2); CARBON DIOXIDE 32 mmol/L (22-30); CHLORIDE 100 mmol/L (98-107); GLUCOSE 91 mg/dL (75-110); POTASSIUM 4.3 mmol/L (3.6-5.0); SODIUM 142.2 mmol/L (137-145); TOTAL PROTEIN 5.9 g/dL (6.3-8.2)
[2018-02-16] MEDS ORDERED: ONDANSETRON 4 MG TAB.RAPDIS PO ONE (14:22)
--- NOTE | 2018-02-16 14:30 | ER Document Report ---
ED General - General Chief Complaint: Abdominal Pain Stated Complaint: ABDOMINAL PAIN Time Seen by Provider: 02/16/18 12:24 TRAVEL OUTSIDE OF THE [place] IN LAST 30 DAYS: No - HPI Notes: Patient is a 37-year-old female with a history of hypertension, on dialysis for CKD for the last 25 years who presents to the ED complaining of lower abdominal pain with one episode of nausea and vomiting today as well as diarrhea throughout the week. Patient states that she has had crampy abdominal pain until today when the pain became sharp. Patient states that the pain does not radiate. She is still able to eat and drink, but does have a decreased p.o. intake due to the nausea. She has dialysis every and did go this morning. Pt was to have pre-op work done for her surgery on Monday for a broken left collar bone, but became sick and diaphoretic and was sent to the ED. Pt states that she does not feel as bad as she did earlier, but the pain persists. Denies any headache, fever, neck pain, URI, sore throat, chest pain, palpitations, syncope, cough, shortness of breath, wheeze, dyspnea, back pain, numbness/tingling, saddle anesthesia, muscle paralysis/weakness, or rash. - Related Data Allergies/Adverse Reactions: latex [Latex] Allergy (Intermediate, Verified 02/16/18 11:41) Hives tramadol [Tramadol] Allergy (Intermediate, Verified 02/16/18 11:41) Hives ibuprofen Allergy (Verified 02/16/18 11:41) naproxen sodium [From Aleve] Allergy (Verified 02/16/18 11:41) Hives Past Medical History - Social History Smoking Status: Never Smoker Chew tobacco use (# tins/day): No Frequency of alcohol use: None Drug Abuse: None Family History: Reviewed & Not Pertinent Patient has suicidal ideation: No Patient has homicidal ideation: No - Past Medical History Cardiac Medical History: Reports: Hx Hypertension Denies: Hx Coronary Artery Disease, Hx Heart Attack Pulmonary Medical History: Denies: Hx Asthma, Hx Bronchitis, Hx COPD, Hx Pneumonia Neurological Medical History: Reports: Hx Seizures. Denies: Hx Cerebrovascular Accident Renal/ Medical History: Reports: Hx End Stage Renal Disease, Hx Hemodialysis, Hx Peritoneal Dialysis Musculoskeltal Medical History: Denies Hx Arthritis, Reports Hx Musculoskeletal Deformity - Nerve damage to left hand, Reports Hx Musculoskeletal Trauma Skin Medical History: Reports Hx Eczema Past Surgical History: Reports: Hx Section, Hx Orthopedic Surgery - bilateral wrist, Hx Thyroid Surgery - x3, Hx Vascular Surgery - Immunizations Immunizations up to date: Yes Hx Diphtheria, Pertussis, Tetanus Vaccination: Yes Review of Systems - Review of Systems -: Yes All other systems reviewed and negative Physical Exam - Vital signs Vitals: Temp Pulse Resp BP Pulse Ox 98.3 F 73 16 157/99 H 97 02/16/18 11:47 02/16/18 11:47 02/16/18 11:47 02/16/18 11:47 02/16/18 11:47 - Notes Notes: PHYSICAL EXAMINATION: GENERAL: Well-appearing, well-nourished and in no acute distress. A&ox4. Moves comfortably. HEAD: Atraumatic, normocephalic. EYES: Pupils equal round and reactive to light, extraocular movements intact, sclera anicteric, conjunctiva are normal. ENT: Nares patent and without discharge. oropharynx clear without exudates. No tonsilar hypertrophy or erythema. Moist mucous membranes. NECK: Normal range of motion, supple without lymphadenopathy LUNGS: Breath sounds clear to auscultation bilaterally and equal. No wheezes rales or rhonchi. HEART: Regular rate and rhythm without murmurs, rubs, gallops. ABDOMEN: Soft, nondistended abdomen. No guarding, no rebound. No masses appreciated. Normal bowel sounds present. No CVA tenderness bilaterally. + tenderness to the RLQ and LLQ to palpation. kendrick negative. Musculoskeletal: FROM to passive/active. Strength 5+/5. Extremities: No cyanosis, clubbing, or edema b/l. Peripheral pulses 2+. Capillary refill less than 3 seconds. NEUROLOGICAL: Normal speech, normal gait. Normal sensory, motor exams PSYCH: Normal mood, normal affect. SKIN: Warm, Dry, normal turgor, no rashes or lesions noted. Course - Re-evaluation Re-evalutation: 02/16/18 16:45 Patient is an afebrile, well-hydrated, 37-year-old female who presents to the ED with nausea, vomiting, diarrhea and unspecified abdominal pain, suspect probable viral infection. Vitals are acceptable. PE is otherwise unremarkable. Patient has no significant tachycardia, tachypnea, or hypoxia. CBC, CMP, were unremarkable for any acute pathology. Stool testing pending but was unremarkable for C. difficile currently. CT scan showed a "equivocal mass or lymph node in the right lower quadrant...which could be a lymph node or loop of opacified bowel." Reviewed this with Dr. Hartley. He is not concerned at this time and this can be f/u'd as an outpatient with her PCM. Patient is able to tolerate p.o. at this time. I will be sending her home with a prescription for Zofran. Conservative measures otherwise for symptoms. Recheck with your PCM in 3-5 days. Return to the ED with any worsening/concerning symptoms otherwise as reviewed discharge. Patient is in agreement. - Vital Signs Vital signs: Temp Pulse Resp BP Pulse Ox 98.3 F 73 16 157/99 H 97 02/16/18 11:47 02/16/18 11:47 02/16/18 11:47 02/16/18 11:47 02/16/18 11:47 - Laboratory Result Diagrams: 02/16/18 13:12 02/16/18 13:12 Laboratory results interpreted by me: 02/16/18 02/16/18 13:12 13:12 RBC 2.98 L Hgb 9.7 L Hct 28.6 L RDW 14.2 H Lymphocytes % 12.0 L Carbon Dioxide 32 H Creatinine 7.58 H Est GFR ( Amer) 7 L Est GFR (Non-Af Amer) 6 L Alkaline Phosphatase 147 H Total Protein 5.9 L Discharge - Discharge Clinical Impression: Nausea vomiting and diarrhea, Right lower quadrant abdominal mass Condition: Stable Disposition: HOME, SELF-CARE Instructions: Abdominal Pain ([facility]) Additional Instructions: Maintain adequate fluid and food intake [place] diet ([facility] Bananas, rice, apples, toast, etc Zofran as needed tylenol if needed Monitor for any worsening symptoms Make sure you are staying hydrated enough to urinate and have normal BM's Recheck with your PCM in 3-5 days Consider consult with Gastroenterology for ongoing/worsening symptoms Return to the ED with any worsening symptoms and/or development of fever, headache, chest pain, palpitations, syncope, shortness of breath, trouble breathing, abdominal pain, n/v/d, blood in stool/urine, weakness, or other worsening symptoms that are concerning to you. Prescriptions: Ondansetron [Zofran Odt 4 mg Tablet] 1 - 2 tab PO Q4H PRN #15 tab.rapdis PRN Reason: For Nausea/Vomiting Forms: Elevated Blood Pressure Referrals: MELL TODD MD [Primary Care Provider] - Follow up in 3-5 days
--- NOTE | 2018-02-16 15:34 | RADIOLOGY REPORT (SQ) ---
EXAM DESCRIPTION: CT ABD/PELVIS NO ORAL OR IV COMPLETED DATE/TIME: 02/16/2018 3:10 pm REASON FOR STUDY: lower abd pain COMPARISON: 12/10/2017 TECHNIQUE: CT scan of the abdomen and pelvis performed without intravenous or oral contrast. Images reviewed with lung, soft tissue, and bone windows. Reconstructed coronal and sagittal MPR images revi ewed. All images stored on PACS. All CT scanners at this facility use dose modulation, iterative reconstruction, and/or weight based d osing when appropriate to reduce radiation dose to as low as reasonably achievable (ALARA). [facility]: Dose Right [facility]: CareDose [facility]: Dose Right [facility]: Teradose 4D [facility]: [employer] Batteries RADIATION DOSE: mGy. LIMITATIONS: None. FINDINGS: LOWER CHEST: No significant findings. No nodules or infiltrates. NON-CONTRASTED LIVER, SPLEEN, ADRENALS: Evaluation limited by lack of IV contrast. No identified sign ificant masses. PANCREAS: No masses. No peripancreatic inflammatory changes. GALLBLADDER: No identified stones by CT criteria. No inflammatory changes to suggest cholecystitis. RIGHT KIDNEY AND URETER: Unchanged multiple cystic lesions. Assessment limited by lack of IV contrast . Atrophy. Renal calculi measuring up to about 1 mm. No hydronephrosis or hydroureter. LEFT KIDNEY AND URETER: Unchanged multiple cystic lesions. Assessment limited by lack of IV contrast. Atrophy. Renal calculi measuring up to about 2 mm. No hydronephrosis or hydroureter. AORTA AND RETROPERITONEUM: No aneurysm. No retroperitoneal masses or adenopathy. BOWEL AND PERITONEAL CAVITY: No obvious masses or inflammatory changes. No free fluid. APPENDIX: Normal. PELVIS, BLADDER, AND ABDOMINAL WALL:3.4 x 4.6 cm soft tissue density in the right groin could be a ly mph node or loop of opacified bowel. Series 3, image 73, series 601, image 27. Unchanged fat contai emery lesion in the left ovary. BONES: No acute findings. OTHER: No other significant finding. IMPRESSION: 1. Equivocal mass or lymph node in the right lower quadrant. This is difficult to further characteri ze without oral or intravenous contrast. 2. Stable dermoid. 3. Chronic renal insufficiency. Stable appearance of both kidneys. COMMENT: Quality ID # [id number]: Final reports with documentation of one or more dose reduction techniques (e.g., Automated exposure control, adjustment of the mA and/or kV according to patient size, use of iterative reconstruction technique) TECHNICAL DOCUMENTATION: JOB ID: [id number] [employer]- All Rights Reserved Reading location - IP/workstation name: Unknown
[2018-02-16 17:12] VITALS: BP 166/93
== END 2018-02-16 17:15 | disposition home or self-care (01) ==
LOC: ER 11:40
DX: R10.30 Lower abdominal pain, unspecified (principal); R19.03 Right lower quadrant abdominal swelling, mass and lump; R11.2 Nausea with vomiting, unspecified; R19.7 Diarrhea, unspecified; R10.813 Right lower quadrant abdominal tenderness; R10.814 Left lower quadrant abdominal tenderness; I12.0 Hypertensive chronic kidney disease with stage 5 chronic kidney disease or end stage renal disease; N18.6 End stage renal disease; Z99.2 Dependence on renal dialysis; Z91.040 Latex allergy status; Z88.5 Allergy status to narcotic agent; Z88.6 Allergy status to analgesic agent
CPT/HCPCS: 99284; 36415; 87045; 89055; 87205; 84703; 85025; 80053; 87493; 74176; A9270; S0119

== ENCOUNTER 2018-02-20 10:23 | Day surgery (SDC) | payer MEDICARE, MEDICAID ==
[~2018-02-20 10:23] MED LIST: BUPIVACAINE HCL 0.5%-EPI 1:200000 INJ/PF 30 ML VIAL ONE; CEFAZOLIN SODIUM 2 GM in DEXTROSE 5%-WATER 100 ML IV PRN; SUCCINYLCHOLINE CHLORIDE INJ 200 MG/10 ML VIAL ONE
[2018-02-20 11:42] LABS: ANION GAP 15 (5-19); BLOOD UREA NITROGEN 18 mg/dL (7-20); CALCIUM 7.8 mg/dL (8.4-10.2); CARBON DIOXIDE 28 mmol/L (22-30); CHLORIDE 98 mmol/L (98-107); GLUCOSE 85 mg/dL (75-110); POTASSIUM 4.7 mmol/L (3.6-5.0); SODIUM 140.8 mmol/L (137-145)
[2018-02-20] MEDS ORDERED: FENTANYL CITRATE INJ/PF 100 MCG/2 ML AMPUL ONE (12:13)
[2018-02-20] MEDS ORDERED: PROPOFOL INJ 200 MG/20 ML VIAL IV ONE (12:14)
[2018-02-20] MEDS ORDERED: HYDROMORPHONE HCL INJ/PF 2 MG/ML AMPULE ONE (12:14)
[2018-02-20] MEDS ORDERED: MIDAZOLAM 2 MG/2 ML INJ ONE (12:14)
[2018-02-20] MEDS ORDERED: ONDANSETRON HCL INJ/PF 4 MG/2 ML SDV ONE (12:14)
[2018-02-20] MEDS ORDERED: METOPROLOL TARTRATE PF/INJ 5 MG/5 ML SDV IV ONE (12:41)
[2018-02-20] MEDS ORDERED: FENTANYL CITRATE INJ/PF 100 MCG/2 ML AMPUL IV PRN ×3 (13:15)
[2018-02-20] MEDS ORDERED: DIPHENHYDRAMINE HCL 50 MG/ML VIAL IV PRN (13:15)
[2018-02-20] MEDS ORDERED: MEPERIDINE HCL/PF INJ 25 MG/1 ML DISP.SYRIN IV PRN (13:15)
[2018-02-20] MEDS ORDERED: BUPIVACAINE HCL 0.5 % INJ/PF 30 ML SDV ONE (14:24)
--- NOTE | 2018-02-20 15:00 | Operative Report ---
Operative Report DATE OF SURGERY: 02/20/18 PREOPERATIVE DIAGNOSIS: Left Midshaft Clavicle Fracture POSTOPERATIVE DIAGNOSIS: Same OPERATION: ORIF Left Clavicle Shaft Fx SURGEON: SHANNAN HANKINS ANESTHESIA: GA COMPLICATIONS: None ESTIMATED BLOOD LOSS: <25cc PROCEDURE: Indication for above procedure: 37-year-old female who sustained a fall injuring her left clavicle. We attempted conservative measures for 4 weeks the patient continued to have discomfort and there is no evidence of radiographic healing. At that point discussion of treatment options were joint decision was made to proceed with operative intervention. Procedure In Detail: Patient was seen and evaluated in the preoperative holding area. The LEFT upper extremity was initialized and marked. Patient received 2g of Ancef IV for bacterial prophylaxis. Patient was taken back to the operative room where transferred to the operative table and placed under general anesthesia. Once they were adequately anesthetized patient was placed in a beachchair position. Her cervical spine was placed in a neutral position bilateral lower extremities and nonoperative right upper extremity were carefully padded. A surgical team debriefing was performed ensuring all instrumentation was available, the surgical procedure was discussed with possible concerns reviewed. The upper extremity was prepped with ChloraPrep and draped in a sterile fashion. A timeout was done identifying correct patient, procedure and extremity everyone in attendance agree with this and verbalized no concerns. Longitudinal skin incision was made along Martin's lines. Branches of the supraclavicular nerves were identified and protected. The platysma fascia was incised in line with the skin incision and full-thickness skin flaps to allow for closure. The fracture was then identified. There is no evidence of callus formation there was evidence of granulation tissue at the fracture site. The fracture edges of the proximal and distal segments were then exposed. A curette was placed within the Canal proximally and distally. The fracture was then reduced and a Acumed distal clavicle plate was secured first to the medial segment with bicortical fixation I then reduced the distal segment which was held with a olive wire. C-arm fluoroscopy was obtained demonstrating reduction of the fracture. I then drilled within the oblong hole of the distal segment with a bicortical screw. Through the oblong hole I dynamically compressed at the fracture site. Fixation was then completed medially with a additional bicortical screw and a locking screw. The distal fragment was then additionally secured a bicortical screw further bringing the plate securely down to the bone. 3 additional locking screws were placed in a distal locking screw plaster. The previous cortex screw was replaced with the appropriate size locking screw. Pain obtaining multiple views demonstrated reduction of the fracture compression at the fracture site. Given the patient's comorbidities and low likelihood of healing I then passed around the fracture site with Vitoss synthetic bone to further stimulate fracture healing. The platysma was then closed with interrupted 3-0 Vicryl suture. Subcutaneous tissues closed with 3-0 Monocryl suture. Skin was closed with a running subcuticular 4-0 Monocryl reinforced with Dermabond and Steri-Strips. 10 cc of 0.5% Marcaine without epinephrine was injected for postoperative pain control. Wound was dressed with Acticoat and OpSite. Patient was placed in a splint. Sponge counts, instrument counts, needle counts counts were correct. Patient was then awoken from anesthesia. Transferred from the operating room table to the operating room stretcher. There was no intraoperative complications patient tolerated procedure well stable to PACU. Postoperative plan: Patient will follow-up the office in 2 weeks will obtain radiographs at that time.
[2018-02-20] MEDS ORDERED: MORPHINE SULFATE 10 MG/ML INJ IV PRN (15:03)
[2018-02-20] MEDS ORDERED: ONDANSETRON HCL INJ/PF 4 MG/2 ML SDV IV PRN (15:03)
[2018-02-20] MEDS ORDERED: OXYCODONE-ACETAMINOPHEN 5-325 MG TABLET PO PRN (15:03)
--- NOTE | 2018-02-20 15:03 | Discharge Summary ---
Discharge Summary (SDC) - Discharge Final Diagnosis: Left clavicle shaft fracture Date of Surgery: 02/20/18 Discharge Date: 02/20/18 Condition: Good Treatment or Instructions: Schedule Follow Up w/ Dr. Héctor De Dios @ [facility] for Surgery to be seen in 10-14 days or as scheduled [place]: [place]: [place]: Keep dressing clean dry/intact until follow-up is begin gentle shoulder range of motion Ice to shoulder May begin pendulum exercises along w/ hand, wrist and elbow range of motion 4x per day or as tolerated. May begin shoulder range of motion exercises below chest level. No lifting. May remove sling for hygiene purposes. Stool softener of choice when on pain medication. Prescriptions: Oxycodone HCl/Acetaminophen [Percocet 5-325 mg Tablet] 1 - 2 tab PO QID PRN #35 tablet PRN Reason: Referrals: MELL TODD MD [Primary Care Provider] - Discharge Diet: As Tolerated Respiratory Treatments at Home: Deep Breathing/Coughing, Incentive Spirometer Discharge Activity: No Lifting Over 10 Pounds, No Lifting/Push/Pulling Report the Following to Your Physician Immediately: Fever over 101 Degrees, Unusual Bleeding, Redness, Swelling, Warmth, Increased Soreness
--- NOTE | 2018-02-20 16:00 | RADIOLOGY REPORT (SQ) ---
EXAM DESCRIPTION: CLAVICLE LEFT COMPLETED DATE/TIME: 02/20/2018 3:31 pm REASON FOR STUDY: ORIF LEFT CLAVICLE W/FLUORO IN OR COMPARISON: None. FLUOROSCOPY TIME: 1.0 minute TECHNIQUE: Intra-operative images acquired during surgical procedure to evaluate progress. NUMBER OF IMAGES: 9 LIMITATIONS: None. FINDINGS: Fluoroscopic images were obtained during open reduction and internal fixation of the left clavicle. Orthopedic hardware is identified in position. Please refer to the surgeon's operative re port for additional information. IMPRESSION: Intraoperative left clavicle as noted above. COMMENT: Please consult full operative report of the attending physician for description of the proc edure. PQRS 6045F: Fluoroscopy time of the procedure is documented in the report. TECHNICAL DOCUMENTATION: JOB ID: [id number] Reading location - IP/workstation name: [email or web address]
--- NOTE | 2018-02-20 16:00 | RADIOLOGY REPORT (SQ) ---
EXAM DESCRIPTION: NO CHG FLUORO COMPLETE DATE/TIME: 02/20/2018 3:31 pm REASON FOR STUDY: ORIF LEFT CLAVICLE W/FLUORO IN OR S42.022A DISP FX OF SHAFT OF LEFT CLAVICLE, INI T FOR CLOS FX M25.512 PAIN IN LEFT SHOULDER FINDINGS: Please see combined report for performance of procedure and radiologic supervision and int erpretation. IMPRESSION: Please see combined report for performance of procedure and radiologic supervision and i nterpretation. Reading location - IP/workstation name: [email or web address]
--- NOTE | 2018-02-20 16:43 | Progress Note ---
Provider Note Provider Note: Anesthesiologist concern given patient's hypertension. Thus we discussed treatment options for the patient also discussed the importance of patient's blood pressure and its possible causes of acute issues such as stroke. Thus contacted the hospitalist to determine if admission is reasonable. They agreed to consult nephrology and evaluate the patient.
[2018-02-20] MEDS ORDERED: LISINOPRIL 10 MG TABLET PO ONE (17:00)
[2018-02-20] MEDS ORDERED: METOPROLOL SUCCINATE 50 MG TAB.SR.24H PO ONE (17:00)
[2018-02-20] MEDS ORDERED: ZOLPIDEM TARTRATE PO PRN (18:26)
[2018-02-20] MEDS ORDERED: ACETAMINOPHEN WITH CODEINE #3 TABLET PO PRN (18:26)
[2018-02-20] MEDS ORDERED: HYDRALAZINE HCL INJ/PF 20 MG/1 ML SDV IV PRN (18:32)
[2018-02-20 18:42] VITALS: BP 195/101
[2018-02-20] MEDS ORDERED: CLONIDINE HCL 0.2 MG TABLET PO ONE (19:00)
[2018-02-20] MEDS ORDERED: CALCIUM ACETATE 667 MG CAPSULE PO SCH (22:00)
[2018-02-21] MEDS ORDERED: METOPROLOL SUCCINATE 50 MG TAB.SR.24H PO SCH (10:00)
[2018-02-21] MEDS ORDERED: LEVETIRACETAM 500 MG TABLET PO SCH (10:00)
[2018-02-21] MEDS ORDERED: (PENDING PHARMACY ID) (Lisinopril [Lisinopril] 40 MG) PO SCH (10:00)
[2018-02-21] MEDS ORDERED: TIZANIDINE HCL 4 MG TABLET PO SCH (10:00)
== END 2018-02-20 18:55 | disposition left against medical advice (07) ==
LOC: OROUT 10:23 → 4S 18:11 → OROUT 18:55
PROVIDERS: ATTEND Orthopaedic Surgery
DX: S42.022A Displaced fracture of shaft of left clavicle, initial encounter for closed fracture (principal); W01.0XXA Fall on same level from slipping, tripping and stumbling without subsequent striking against object, initial encounter; Y92.002 Bathroom of unspecified non-institutional (private) residence as the place of occurrence of the external cause; M25.512 Pain in left shoulder; I12.9 Hypertensive chronic kidney disease with stage 1 through stage 4 chronic kidney disease, or unspecified chronic kidney disease; N18.9 Chronic kidney disease, unspecified; Z99.2 Dependence on renal dialysis; G40.909 Epilepsy, unspecified, not intractable, without status epilepticus; D64.9 Anemia, unspecified; Z88.5 Allergy status to narcotic agent; Z79.899 Other long term (current) drug therapy; Z01.818 Encounter for other preprocedural examination; Z88.6 Allergy status to analgesic agent; Z91.040 Latex allergy status
CPT/HCPCS: 23515; 36415; 80048; 73000; C1713 ×2; J2250; J3490; J0690; J3010; A9270 ×3; J1170; J0330; J2405; J2704; 00450